=== PATIENT | female | born 1970 | race Caucasian/White ===

== ENCOUNTER → 2016-08-29 | Outpatient (CLI) | payer OTHER ==
--- NOTE | 2016-08-31 08:26 | MM ---
Reason for exam: screening (asymptomatic). Last mammogram was performed 1 year ago. Physical Findings: A clinical breast exam by your physician is recommended on an annual basis and results should be correlated with mammographic findings. MG 3D Screening Mammo W/Cad Bilateral CC and MLO view(s) were taken. Prior study comparison: August 25, 2015, bilateral MG 3d screening mammo w/cad. April 27, 2014, bilateral MG screening mammo w CAD. December 11, 2012, bilateral digital screening mammo w/CAD. The breast tissue is heterogeneously dense. This may lower the sensitivity of mammography. No significant changes when compared with prior studies. ASSESSMENT: Negative, BI-RAD 1 RECOMMENDATION: Routine screening mammogram of both breasts in 1 year.
== END | disposition home or self-care (01) ==
LOC: RADMAMWWP 13:23
PROVIDERS: ATTEND Internal Medicine
DX: Z12.31 Encounter for screening mammogram for malignant neoplasm of breast (principal)
CPT/HCPCS: 77063; G0202

== ENCOUNTER → 2016-10-16 | Outpatient (CLI) | payer OTHER ==
[2016-10-16 11:44] LABS: Cholesterol 144 mg/dL (<200); Creatine Kinase 46 U/L (30-135); HDL Cholesterol 47 mg/dL (40-60); Triglycerides 68 mg/dL (<150)
== END | disposition home or self-care (01) ==
LOC: LABWHC1 10:25
PROVIDERS: ATTEND Internal Medicine
DX: E78.5 Hyperlipidemia, unspecified (principal)
CPT/HCPCS: 36415; 80061; 82550

== ENCOUNTER 2016-12-16 13:30 | Emergency (ER) | payer OTHER ==
[2016-12-16 13:51] VITALS: RESP 18
--- NOTE | 2016-12-16 15:18 | ED ---
General Adult HPI - General Chief complaint: Back Pain/Injury Stated complaint: Flank Pain Time Seen by Provider: 12/16/16 14:27 Source: patient, family, RN notes reviewed Mode of arrival: ambulatory Limitations: no limitations - History of Present Illness Initial comments: Chief complaint and history of present illness a 46-year-old female here with his significant other. The patient reports for the past 2 days to have diffuse discomfort with deep breathing and coughing twisting and turning to both sides of her chest. Goes from her axillary area down the midaxillary line to the top of her pelvis. Pain is increased by twisting turning bending deep breathing coughing and palpation. She has had a past history of costochondritis. Also history of fibromyalgia. She's been doing some heavy lifting lately. Last week she said she had a fever . - Related Data Home Medications Medication Instructions Recorded Confirmed Albuterol Inhaler [Ventolin Hfa 1 - 2 puff INHALATION RT-Q6H PRN 12/16/16 Inhaler] Atorvastatin [Lipitor] 10 mg PO HS 12/16/16 12/16/16 Brexpiprazole [Rexulti] 2 mg PO DAILY 12/16/16 12/16/16 FLUoxetine HCL [PROzac] 40 mg PO BID 12/16/16 12/16/16 Fluticasone Nasal [place] [Flonase 1 spr EA NOSTRIL HS 12/16/16 12/16/16 Nasal [place]] HYDROcodone/APAP 7.5-325MG [[place] 1 tab PO BID PRN 12/16/16 12/16/16 7.5-325] Ibuprofen [Motrin] 800 mg PO Q6H PRN 12/16/16 12/16/16 Loratadine [Claritin] 10 mg PO DAILY 12/16/16 12/16/16 Montelukast [Singulair] 10 mg PO DAILY 12/16/16 12/16/16 Naproxen 500 mg PO Q12HR 12/16/16 12/16/16 Pregabalin [Lyrica] 150 mg PO BID 12/16/16 12/16/16 Topiramate [Topamax] 100 mg PO BID 12/16/16 12/16/16 Previous Rx's Medication Instructions Recorded Ibuprofen [Motrin] 600 mg PO Q6HR PRN #20 tab 12/16/16 predniSONE 10 mg PO DAILY #3 tab 12/16/16 Allergies Allergy/AdvReac Type Severity Reaction Status Date / Time cashew nut Allergy Unknown Verified 12/16/16 14:28 mold Allergy Unknown Verified 12/16/16 13:52 shellfish derived [Shellfish] Allergy Anaphylaxis Verified 12/16/16 13:52 Review of Systems ROS Statement: Those systems with pertinent positive or pertinent negative responses have been documented in the HPI. Review of systems no headache no sore throat she has discomfort to bilateral mid axillary lines from her axilla to her anterior superior iliac spines both hip areas. Pain is easily reproduced by twisting turning deep breathing coughing and palpation. No rashes noted. No direct injury but she does have a history of fibromyalgia she has been doing some heavy lifting and yard work lately. Otherwise no neuro deficits to change in appetite. No nausea no vomiting. All systems are reviewed. Past medical problems COPD and she quit smoking one month ago. History of fibromyalgia for which she takes medications she also has a history of intercostal neuritis costochondritis. Surgeries none. Family history no cancers. Patient has ALLERGIES to mold shellfish. She quit smoking one month ago denies alcohol use. ROS Other: All systems not noted in ROS Statement are negative. Past Medical History Past Medical History: COPD, Fibromyalgia Additional Past Medical History / Comment(s): intercostal neuritis, DDD, carpal tunnel, tennis elbow. History of Any Multi-Drug Resistant Organisms: None Reported Past Surgical History: No Surgical Hx Reported Past Psychological History: No Psychological Hx Reported Smoking Status: Former smoker Past Alcohol Use History: None Reported Past Drug Use History: None Reported General Exam - General Exam Comments Initial Comments: General: The patient is awake and alert, complains reproducible pain across along both midaxillary lines. Left side equal to right side. Made worse by deep breathing coughing twisting turning or palpation. Vital signs shows temperature 98.7 pulse 77 respiratory 18 pulse ox 90% room air blood pressure 136/83 Eye: Pupils are equal, round and reactive to light, extra-ocular movements are intact ; there is normal conjunctiva bilaterally. No signs of icterus. Ears, nose, mouth and throat: There are moist mucous membranes and no oral lesions. Patient has false teeth. Neck: The neck is supple, there is no tenderness mild tenderness left anterior cervical region no palpable lymph nodes. No masses appreciated. Cardiovascular: There is a regular rate and rhythm. No murmur, rub or gallop is appreciated. Respiratory: Lungs are clear to auscultation, respirations are non-labored, breath sounds are equal. No wheezes, stridor, rales, or rhonchi. Reproducible discomfort similar to her chief complaint and palpation of the chest wall laterally. As well as deep breathing and coughing. Gastrointestinal: Soft, non-distended, non-tender abdomen without masses or organomegaly noted. There is no rebound or guarding present. No CVA tenderness. Bowel sounds are unremarkable. Back: There is no tenderness to palpation in the midline. There is no obvious deformity. No rashes noted. Pain is noted above. Musculoskeletal: Normal ROM, no tenderness, There is no pedal edema. There is no calf tenderness or swelling. Sensation intact. Neurological: CN II-XII intact, There are no obvious motor or sensory deficits. Coordination appears grossly intact. Speech is normal. No neuro deficits appreciated. Skin: Skin is warm and dry and no rashes or lesions are noted. Limitations: no limitations Course Vital Signs 12/16/16 13:45 Temperature 98.7 F Pulse Rate 77 Respiratory 18 Rate Blood Pressure 136/83 O2 Sat by Pulse 98 Oximetry Medical Decision Making - Medical Decision Making Medical decision making; patient's white count 6 hemoglobin 13 hematocrit 39 with a potassium 4.0. BUN 6 creatinine 0.5 GFR greater than 60. Glucose 81. Chest x-ray was done and reviewed by radiologist his report and findings are the heart size is normal. The pulmonary vasculature is normal. The lungs are clear. Impression no acute pulmonary process. As read by Dr. Tirado A blood specimen is being sent to [facility] for evaluation of chlamydia PSITACCI, psittacosis apparent fever. At this time the patient's lungs are clear, no fever, no productive cough, no rashes. I discussed with the patient the treatment of tetracycline or doxycycline should this become a positive result from the lab. Inasmuch as the patient does not have any other symptoms other than owning to parents who awakened at this time for the diagnosis to be made by [facility]. Patient advised to talk to her family physician, Dr. Contreras concerning this. The meanwhile the patient be treated for costochondritis with 10 mg of prednisone per day for 4 days and ibuprofen 600 mg 4 times daily for 1 week. - Lab Data Result diagrams: 12/16/16 15:17 12/16/16 15:17 Lab Results 12/16/16 12/16/16 Range/Units 15:17 15:17 WBC 6.2 (3.8-10.6) k/uL RBC 4.29 (3.80-5.40) m/uL Hgb 13.3 (11.4-16.0) gm/dL Hct 39.9 (34.0-46.0) % MCV 92.9 (80.0-100.0) fL MCH 30.9 (25.0-35.0) pg MCHC 33.3 (31.0-37.0) g/dL RDW 13.3 (11.5-15.5) % Plt Count 221 (150-450) k/uL Neutrophils % 56 % Lymphocytes % 35 % Monocytes % 5 % Eosinophils % 1 % Basophils % 0 % Neutrophils # 3.5 (1.3-7.7) k/uL Lymphocytes # 2.1 (1.0-4.8) k/uL Monocytes # 0.3 (0-1.0) k/uL Eosinophils # 0.1 (0-0.7) k/uL Basophils # 0.0 (0-0.2) k/uL Sodium 143 (137-145) mmol/L Potassium 4.0 (3.5-5.1) mmol/L Chloride 109 H (98-107) mmol/L Carbon Dioxide 25 (22-30) mmol/L Anion Gap 9 mmol/L BUN 6 L (7-17) mg/dL Creatinine 0.50 L (0.52-1.04) mg/dL Est GFR (MDRD) Af Amer >60 (>60 ml/min/1.73 sqM) Est GFR (MDRD) Non-Af >60 (>60 ml/min/1.73 sqM) Glucose 81 (74-99) mg/dL Calcium 9.0 (8.4-10.2) mg/dL Total Bilirubin 0.8 (0.2-1.3) mg/dL AST 15 (14-36) U/L ALT 23 (9-52) U/L Alkaline Phosphatase 38 (38-126) U/L C-Reactive Protein <5.0 (<10.0) mg/L Total Protein 6.4 (6.3-8.2) g/dL Albumin 3.8 (3.5-5.0) g/dL Disposition Clinical Impression: Costochondritis, acute Disposition: HOME SELF-CARE Condition: Fair Additional Instructions: Take medications as directed. Follow-up family physician. Call the follow-up nurse emergency room for the results of the ear. Fever test in 5 days. Prescriptions: Ibuprofen [Motrin] 600 mg PO Q6HR PRN #20 tab PRN Reason: Pain predniSONE 10 mg PO DAILY #3 tab Referrals: Grant Contreras MD [Primary Care Provider] - 1-2 days Time of Disposition: 16:17
[2016-12-16 15:26] LABS: Basophils % (A) 0 %; CH 30.6; CHCM 33.1; Eosinophils # (A) 0.1 k/uL (0-0.7); Eosinophils % (A) 1 %; HCT 39.9 % (34.0-46.0); HDW 2.48; HGB 13.3 gm/dL (11.4-16.0); Luc # (Auto) 0.18; Luc % (Auto) 3; Lymphocytes # (A) 2.1 k/uL (1.0-4.8); Lymphocytes % (A) 35 %; MCH 30.9 pg (25.0-35.0); MCHC 33.3 g/dL (31.0-37.0); MCV 92.9 fL (80.0-100.0); Mean Platelet Volume 7.1; Monocytes # (A) 0.3 k/uL (0-1.0); Monocytes % (A) 5 %; Neutrophils # (A) 3.5 k/uL (1.3-7.7); Neutrophils % (A) 56 %; RBC 4.29 m/uL (3.80-5.40); RDW 13.3 % (11.5-15.5); WBC 6.2 k/uL (3.8-10.6); WBC (Perox) 6.07
[2016-12-16 15:37] LABS: ALT 23 U/L (9-52); AST 15 U/L (14-36); Alkaline Phosphatase 38 U/L (38-126); Anion Gap 9 mmol/L; Blood Urea Nitrogen 6 mg/dL (7-17); C Reactive Protein <5.0 mg/L (<10.0); Carbon Dioxide 25 mmol/L (22-30); Chloride 109 mmol/L (98-107); Glucose 81 mg/dL (74-99); Non-African American GFR(MDRD) >60 (>60 ml/min/1.73 sqM); Sodium 143 mmol/L (137-145); Total Bilirubin 0.8 mg/dL (0.2-1.3); Total Protein 6.4 g/dL (6.3-8.2)
--- NOTE | 2016-12-16 16:01 | XR ---
EXAMINATION TYPE: XR chest 2V DATE OF EXAM: 12/16/2016 3:24 PM COMPARISON: NONE INDICATION: Pain with deep breathing TECHNIQUE: Single frontal view of the chest is obtained. FINDINGS: The heart size is normal. The pulmonary vasculature is normal. The lungs are clear. IMPRESSION: 1. No acute pulmonary process.
[2016-12-16] MEDS ORDERED: IBUPROFEN 600 MG STARTER PACK 4 TAB BTL PO STA (16:12)
[2016-12-16] MEDS ORDERED: predniSONE 20 MG TAB PO STA (16:12)
[2016-12-16 16:30] VITALS: BP 138/64; PULSE 55; TEMP 97.6
[2016-12-20 07:54] LABS: Mis test requested (Blood) Chlamydia Serology
== END 2016-12-16 16:29 | disposition home or self-care (01) ==
LOC: EC 13:30
DX: M94.0 Chondrocostal junction syndrome [Tietze] (principal); R10.9 Unspecified abdominal pain; R50.9 Fever, unspecified; Z79.51 Long term (current) use of inhaled steroids; J44.9 Chronic obstructive pulmonary disease, unspecified; Z87.891 Personal history of nicotine dependence; Z79.1 Long term (current) use of non-steroidal anti-inflammatories (NSAID); Z79.899 Other long term (current) drug therapy; Z91.013 Allergy to seafood; Z91.018 Allergy to other foods; Z91.048 Other nonmedicinal substance allergy status
CPT/HCPCS: 36415; 80053; 85025; 86140; 71020; 99284; J7512; 86631; 86632

== ENCOUNTER 2016-12-19 16:26 | Emergency (ER) | payer OTHER ==
[2016-12-19] MEDS ORDERED: MORPHINE SULFATE 2 MG/ML SYRINGE IVP STA (17:38)
[2016-12-19] MEDS ORDERED: SODIUM CHLORIDE 0.9% 1,000 ML IV STA (17:38)
[2016-12-19] MEDS ORDERED: ORPHENADRINE 30 MG/ML 2 ML VIAL IVP STA (17:39)
--- NOTE | 2016-12-19 17:52 | ED ---
General Adult HPI - General Chief complaint: Recheck/Abnormal Lab/Rx Stated complaint: Side Pain Time Seen by Provider: 12/19/16 17:28 Source: patient, RN notes reviewed, old records reviewed Mode of arrival: ambulatory Limitations: no limitations - History of Present Illness Initial comments: This is a 46-year-old female with chief complaint of recurrent bilateral side pain. Patient reports that the pain is worse with movement. She reports that she was diagnosed with costochondritis and placed on steroids and anti- inflammatory medication. Patient reports that she went to her neurologist today and she has a history of fibromyalgia. Patient reports that she received a Toradol shot felt somewhat better over her pain is now return. Patient states that she does have an appointment tomorrow with her primary care doctor. Patient states that she just was not able to get comfortable and to sleep well. Patient states that she takes [place] at home. She reports that Helping her pain. She states the pain is worse with any kind of movement over her torso. She reports that radiates from bilateral axilla down to her pelvis region. Patient denies any difficulty urinating or bowel movements. Denies any nausea vomiting or specific abdominal pain. Patient states that she has no deep chest pain. Everything seems to be superficial. - Related Data Home Medications Medication Instructions Recorded Confirmed Albuterol Inhaler [Ventolin Hfa 1 - 2 puff INHALATION RT-Q6H PRN 12/16/16 Inhaler] Atorvastatin [Lipitor] 10 mg PO HS 12/16/16 12/19/16 FLUoxetine HCL [PROzac] 40 mg PO BID 12/16/16 12/19/16 Fluticasone Nasal [place] [Flonase 1 spr EA NOSTRIL BID 12/16/16 12/19/16 Nasal [place]] HYDROcodone/APAP 7.5-325MG [[place] 1 tab PO TID PRN 12/16/16 12/19/16 7.5-325] Loratadine [Claritin] 10 mg PO DAILY 12/16/16 12/19/16 Montelukast [Singulair] 10 mg PO DAILY 12/16/16 12/19/16 Pregabalin [Lyrica] 150 mg PO BID 12/16/16 12/19/16 Topiramate [Topamax] 100 mg PO BID 12/16/16 12/19/16 Multivitamins, Thera [Multivitamin 1 tab PO DAILY 12/19/16 12/19/16 (formulary)] Oil Of Oregano 1 dose PO DAILY 12/19/16 12/19/16 predniSONE 20 mg PO DAILY 12/19/16 12/19/16 Previous Rx's Medication Instructions Recorded Ibuprofen [Motrin] 600 mg PO Q6HR PRN #20 tab 12/16/16 Cyclobenzaprine [Flexeril] 10 mg PO TID #12 tab 12/19/16 Allergies Allergy/AdvReac Type Severity Reaction Status Date / Time cashew nut Allergy Unknown Verified 12/19/16 18:36 cat dander Allergy Unknown Verified 12/19/16 18:36 dog dander Allergy Unknown Verified 12/19/16 18:36 mold Allergy Unknown Verified 12/19/16 18:36 shellfish derived [Shellfish] Allergy Anaphylaxis Verified 12/19/16 18:36 Review of Systems ROS Statement: Those systems with pertinent positive or pertinent negative responses have been documented in the HPI. ROS Other: All systems not noted in ROS Statement are negative. Past Medical History Past Medical History: COPD, Fibromyalgia Additional Past Medical History / Comment(s): intercostal neuritis, DDD, carpal tunnel, tennis elbow. History of Any Multi-Drug Resistant Organisms: None Reported Past Surgical History: No Surgical Hx Reported Past Psychological History: No Psychological Hx Reported Smoking Status: Former smoker Past Alcohol Use History: None Reported Past Drug Use History: None Reported General Exam - General Exam Comments Initial Comments: Patient is a 46-year-old female. She does not appear to be in any acute distress. Limitations: no limitations General appearance: alert, in no apparent distress Head exam: Present: atraumatic, normocephalic, normal inspection Eye exam: Present: normal appearance, PERRL, EOMI. Absent: scleral icterus, conjunctival injection, periorbital swelling ENT exam: Present: normal exam, mucous membranes moist Neck exam: Present: normal inspection. Absent: tenderness, meningismus, lymphadenopathy Respiratory exam: Present: normal lung sounds bilaterally, chest wall tenderness (Patient has significant bilateral chest wall tenderness. ). Absent : respiratory distress, wheezes, rales, rhonchi, stridor Cardiovascular Exam: Present: regular rate, normal rhythm, normal heart sounds. Absent: systolic murmur, diastolic murmur, rubs, gallop, clicks GI/Abdominal exam: Present: soft, normal bowel sounds. Absent: distended, tenderness, guarding, rebound, rigid Extremities exam: Present: normal inspection, full ROM, normal capillary refill. Absent: tenderness, pedal edema, joint swelling, calf tenderness Back exam: Present: normal inspection Neurological exam: Present: alert, oriented X3, CN II-XII intact Psychiatric exam: Present: normal affect, normal mood Skin exam: Present: warm, dry, intact, normal color. Absent: rash Course Vital Signs 12/19/16 12/19/16 16:58 17:35 Temperature 98.6 F Pulse Rate 81 Respiratory 20 16 Rate Blood Pressure 120/57 O2 Sat by Pulse 96 Oximetry Medical Decision Making - Medical Decision Making This is a 46-year-old female with chief complaint of diffuse muscle aches and body pain. Patient was treated for costochondritis and was given steroids and anti-inflammatories. Patient reports that she saw her neurologist today and received a shot of Toradol was feeling somewhat better after that. She reports the pain returned and then decided come to the emergency room. She does have an appointment tomorrow with her primary care provider. She does have a history of viral myalgias concerned this is a fibronodular laceration. Patient lab work and x-rays were negative for any acute process. She does have a lot of blood in her urine but she is currently on her menstrual cycle. Patient will be discharged with muscle relaxers and advised to take her at home pain medication and follow-up tomorrow with her regular care provider. Patient agrees treatment plan will comply. Return parameters were discussed. - Lab Data Result diagrams: 12/19/16 18:00 12/19/16 18:00 Lab Results 12/19/16 12/19/16 12/19/16 Range/Units 17:40 17:40 18:00 WBC (3.8-10.6) k/uL RBC (3.80-5.40) m/uL Hgb (11.4-16.0) gm/dL Hct (34.0-46.0) % MCV (80.0-100.0) fL MCH (25.0-35.0) pg MCHC (31.0-37.0) g/dL RDW (11.5-15.5) % Plt Count (150-450) k/uL Neutrophils % % Lymphocytes % % Monocytes % % Eosinophils % % Basophils % % Neutrophils # (1.3-7.7) k/uL Lymphocytes # (1.0-4.8) k/uL Monocytes # (0-1.0) k/uL Eosinophils # (0-0.7) k/uL Basophils # (0-0.2) k/uL Sodium 138 (137-145) mmol/L Potassium 5.0 (3.5-5.1) mmol/L Chloride 107 (98-107) mmol/L Carbon Dioxide 24 (22-30) mmol/L Anion Gap 7 mmol/L BUN 12 (7-17) mg/dL Creatinine 0.48 L (0.52-1.04) mg/dL Est GFR (MDRD) Af Amer >60 (>60 ml/min/1.73 sqM) Est GFR (MDRD) Non-Af >60 (>60 ml/min/1.73 sqM) Glucose 96 (74-99) mg/dL Calcium 9.2 (8.4-10.2) mg/dL Total Bilirubin 0.5 (0.2-1.3) mg/dL AST 14 (14-36) U/L ALT 16 (9-52) U/L Alkaline Phosphatase 38 (38-126) U/L Troponin I (0.000-0.034) ng/mL Total Protein 6.6 (6.3-8.2) g/dL Albumin 3.8 (3.5-5.0) g/dL Amylase 46 (30-110) U/L Lipase 60 (23-300) U/L Urine Color Yellow Urine Appearance Clear (Clear) Urine pH 7.5 (5.0-8.0) Ur Specific [place] 1.015 (1.001-1.035) Urine Protein Negative (Negative) Urine Glucose (UA) Negative (Negative) Urine Ketones Negative (Negative) Urine Blood Moderate H (Negative) Urine Nitrite Negative (Negative) Urine Bilirubin Negative (Negative) Urine Urobilinogen 2.0 (<2.0) mg/dL Ur Leukocyte Esterase Negative (Negative) Urine RBC 47 H (0-5) /hpf Urine WBC 6 H (0-5) /hpf Ur Squamous Epith Cells 1 (0-4) /hpf Amorphous Sediment Rare H (None) /hpf Urine Mucus Rare H (None) /hpf Urine HCG, Qual Not Detected (Not Detectd) 12/19/16 12/19/16 Range/Units 18:00 18:00 WBC 9.3 (3.8-10.6) k/uL RBC 4.37 (3.80-5.40) m/uL Hgb 13.9 (11.4-16.0) gm/dL Hct 40.9 (34.0-46.0) % MCV 93.7 (80.0-100.0) fL MCH 31.9 (25.0-35.0) pg MCHC 34.1 (31.0-37.0) g/dL RDW 13.2 (11.5-15.5) % Plt Count 294 (150-450) k/uL Neutrophils % 80 % Lymphocytes % 13 % Monocytes % 5 % Eosinophils % 0 % Basophils % 0 % Neutrophils # 7.4 (1.3-7.7) k/uL Lymphocytes # 1.2 (1.0-4.8) k/uL Monocytes # 0.5 (0-1.0) k/uL Eosinophils # 0.0 (0-0.7) k/uL Basophils # 0.0 (0-0.2) k/uL Sodium (137-145) mmol/L Potassium (3.5-5.1) mmol/L Chloride (98-107) mmol/L Carbon Dioxide (22-30) mmol/L Anion Gap mmol/L BUN (7-17) mg/dL Creatinine (0.52-1.04) mg/dL Est GFR (MDRD) Af Amer (>60 ml/min/1.73 sqM) Est GFR (MDRD) Non-Af (>60 ml/min/1.73 sqM) Glucose (74-99) mg/dL Calcium (8.4-10.2) mg/dL Total Bilirubin (0.2-1.3) mg/dL AST (14-36) U/L ALT (9-52) U/L Alkaline Phosphatase (38-126) U/L Troponin I <0.012 (0.000-0.034) ng/mL Total Protein (6.3-8.2) g/dL Albumin (3.5-5.0) g/dL Amylase (30-110) U/L Lipase (23-300) U/L Urine Color Urine Appearance (Clear) Urine pH (5.0-8.0) Ur Specific [place] (1.001-1.035) Urine Protein (Negative) Urine Glucose (UA) (Negative) Urine Ketones (Negative) Urine Blood (Negative) Urine Nitrite (Negative) Urine Bilirubin (Negative) Urine Urobilinogen (<2.0) mg/dL Ur Leukocyte Esterase (Negative) Urine RBC (0-5) /hpf Urine WBC (0-5) /hpf Ur Squamous Epith Cells (0-4) /hpf Amorphous Sediment (None) /hpf Urine Mucus (None) /hpf Urine HCG, Qual (Not Detectd) - Radiology Data Radiology results: report reviewed Chest x-ray is normal. No change. Abdominal x-rays also notable. No acute change. Disposition Clinical Impression: Generalized muscle ache Disposition: HOME SELF-CARE Condition: Good Instructions: Fibromyalgia (ED) Additional Instructions: Patient advised to follow-up tomorrow here primary care provider. Take muscle relaxers and temperatures as prescribed. Return to emergency department if any alarming signs or symptoms occur. Prescriptions: Cyclobenzaprine [Flexeril] 10 mg PO TID #12 tab Referrals: Grant Contreras MD [Primary Care Provider] - 1-2 days Time of Disposition: 19:23
[2016-12-19 17:59] LABS: Amorphous Sediment,Urine Rare /hpf; Appearance,Urine Clear (Clear); Bilirubin,Urine Negative (Negative); Glucose,Urine (UA) Negative (Negative); Ketones,Urine Negative (Negative); Leukocyte Esterase,Urine Negative (Negative); Mucus,Urine Rare /hpf; Nitrite,Urine Negative (Negative); PH, Urine 7.5 (5.0-8.0); Particle Count 2123; Protein,Urine Negative (Negative); RBC,Urine 47 /hpf (0-5); Specific Gravity,Urine 1.015 (1.001-1.035); Squamous Epithelial Cell,Urine 1 /hpf (0-4); UA Billing (MACRO vs. MICRO) MICRO; WBC,Urine 6 /hpf (0-5)
[2016-12-19 18:23] LABS: Basophils % (A) 0 %; CH 30.8; Eosinophils % (A) 0 %; HCT 40.9 % (34.0-46.0); HGB 13.9 gm/dL (11.4-16.0); Luc # (Auto) 0.18; Luc % (Auto) 2; Lymphocytes # (A) 1.2 k/uL (1.0-4.8); Lymphocytes % (A) 13 %; MCH 31.9 pg (25.0-35.0); MCHC 34.1 g/dL (31.0-37.0); MCV 93.7 fL (80.0-100.0); Monocytes # (A) 0.5 k/uL (0-1.0); Monocytes % (A) 5 %; Neutrophils # (A) 7.4 k/uL (1.3-7.7); Neutrophils % (A) 80 %; RBC 4.37 m/uL (3.80-5.40); RDW 13.2 % (11.5-15.5); WBC 9.3 k/uL (3.8-10.6); WBC (Perox) 9.24
[2016-12-19 18:26] LABS: ALT 16 U/L (9-52); AST 14 U/L (14-36); Alkaline Phosphatase 38 U/L (38-126); Amylase 46 U/L (30-110); Anion Gap 7 mmol/L; Blood Urea Nitrogen 12 mg/dL (7-17); Calcium 9.2 mg/dL (8.4-10.2); Carbon Dioxide 24 mmol/L (22-30); Chloride 107 mmol/L (98-107); Glucose 96 mg/dL (74-99); Non-African American GFR(MDRD) >60 (>60 ml/min/1.73 sqM); Sodium 138 mmol/L (137-145); Total Bilirubin 0.5 mg/dL (0.2-1.3); Total Protein 6.6 g/dL (6.3-8.2)
--- NOTE | 2016-12-19 18:39 | XR ---
EXAMINATION TYPE: XR KUB DATE OF EXAM: 12/19/2016 6:27 PM COMPARISON: NONE HISTORY: Abdominal pain TECHNIQUE: 2 views FINDINGS: Bowel gas pattern is normal. There is no sign of intestinal obstruction or pneumoperitoneum . Fecal pattern is normal. There are no pathologic calcifications over the kidneys. Lung bases are cl ear. IMPRESSION: Nonacute abdomen.
--- NOTE | 2016-12-19 18:40 | XR ---
EXAMINATION TYPE: XR chest 2V DATE OF EXAM: 12/19/2016 6:27 PM COMPARISON: 12/16/2016 HISTORY: Chest pain TECHNIQUE: Frontal and lateral views of the chest are obtained. FINDINGS: Heart and mediastinum are normal. Lungs are clear. Diaphragm is normal. Bony thorax appear s normal. IMPRESSION: Normal chest. No change.
[2016-12-19] MEDS ORDERED: CYCLOBENZAPRINE 10MG STARTER 3 TAB BTL PO STA (19:28)
[2016-12-19 19:55] VITALS: BP 128/60; PULSE 60; RESP 18; TEMP 98
== END 2016-12-19 20:02 | disposition home or self-care (01) ==
LOC: EC 16:26
DX: M79.1 Myalgia (principal); J44.9 Chronic obstructive pulmonary disease, unspecified; Z87.891 Personal history of nicotine dependence; Z79.51 Long term (current) use of inhaled steroids; Z79.52 Long term (current) use of systemic steroids; Z79.899 Other long term (current) drug therapy; Z91.013 Allergy to seafood; Z91.018 Allergy to other foods; Z91.09 Other allergy status, other than to drugs and biological substances; Z91.048 Other nonmedicinal substance allergy status
CPT/HCPCS: 36415; 80053; 82150; 83690; 84484; 85025; 81001; 81025; 71020; 74000; 99284; 96374; 96375; 96361; J2360; J2270

== ENCOUNTER → 2017-02-06 | Outpatient (CLI) | payer OTHER ==
[2017-02-06 13:34] LABS: Follicle Stimulating Hormone 10.6 mIU/mL
[2017-02-06 13:36] LABS: Basophils % (A) 0 %; CHCM 34.5; Eosinophils # (A) 0.1 k/uL (0-0.7); Eosinophils % (A) 1 %; HCT 39.9 % (34.0-46.0); HGB 13.7 gm/dL (11.4-16.0); Luc # (Auto) 0.19; Luc % (Auto) 3; Lymphocytes # (A) 1.8 k/uL (1.0-4.8); Lymphocytes % (A) 27 %; MCH 30.9 pg (25.0-35.0); MCHC 34.2 g/dL (31.0-37.0); MCV 90.4 fL (80.0-100.0); Mean Platelet Volume 7.1; Monocytes # (A) 0.4 k/uL (0-1.0); Monocytes % (A) 6 %; Neutrophils # (A) 4.2 k/uL (1.3-7.7); Neutrophils % (A) 63 %; RBC 4.42 m/uL (3.80-5.40); RDW 12.8 % (11.5-15.5); WBC 6.6 k/uL (3.8-10.6); WBC (Perox) 6.45
--- NOTE | 2017-02-07 08:32 | WWHP ---
CHIEF COMPLAINT: The patient is here for her routine gynecologic exam. HPI: This is a 46-year-old G4, P2-0-2-2 with an LMP of 01/26/17. The patient's is status post vasectomy. She states her periods have become more frequent and are typically about 2 weeks between periods. She states this has been going on for about one year. They are typically lasting 5 to 7 days with variable flow. She has been having hot flashes, night sweats and mood swings. She also hash been very fatigued. She has been experiencing pain on both sides of her body and she believes this may be related to her fibromyalgia. She states she was in the emergency room 12/16/16 and chlamydia serology testing was done. The titer was positive for C. pneumoniae IgG antibodies. Serology was negative for C. trachomatis titers. PAST MEDICAL HISTORY: Major depression, COPD, fibromyalgia, migraine headaches, chronic hypertension, IBS, and degenerative disc disease. MEDICATIONS: 1. Fluoxetine 40 mg b.i.d. 2. Lyrica 150 mg b.i.d. 3. Topiramate 100 mg b.i.d. 4. Rexulti 2 mg daily. 5. Hydrocodone 7.5/325 b.i.d. 6. Ibuprofen 800 mg p.r.n. 7. Naproxen 500 mg b.i.d. 8. Atorvastatin 10 mg daily. 9. Loratadine 10 mg daily. 10. Montelukast 10 mg daily. 11. Fluticasone 50 mcg b.i.d. 12. Ventolin HFA inhaler q.4 to 6 hours. 13. Lisinopril 5 mg daily. ALLERGIES: No known drug allergies. PAST SURGICAL HISTORY: VTP in the past, cryotherapy of the cervix in 2000. PAST OB HISTORY: Two vaginal deliveries, one voluntary termination of and one spontaneous . PAST SEMICONDUCTOR BONDER HISTORY: She had cryotherapy in 2000 for cervical dysplasia and has no other history of STD. SOCIAL HISTORY: She previous smoked but quit in 09/14. She denies alcohol and drug use. She has been since 2014 and is currently unemployed. FAMILY HISTORY: Mother has diabetes. REVIEW OF SYSTEMS: She has lost about 6 pounds over the last 2 to 3 years. RESPIRATORY: Occasional shortness of breath related to her COPD. She denies cardiac problems. GI: She does have occasional constipation and IBS symptoms. PHYSICAL EXAM: Blood pressure 102/70, height 5 feet 4 inches, weight 178 pounds. Temperature 98.0, pulse 75. This is a well developed, well nourished white female who is alert and oriented x3 in no acute distress. HEENT is within normal limits. Neck supple without mass or thyromegaly. Chest and lungs clear to auscultation. Heart: Regular rate and rhythm. Breasts are without mass or discharge. Axillary exam is negative for adenopathy. Back is negative for cva tenderness. Abdomen is soft and there is mild generalized tenderness throughout the abdomen without rebound tenderness. There are no palpable abdominal masses. The abdomen is nondistended. Pelvic exam is normal external genitalia. Cervix and vagina reveal a scant amount of menstrual type blood at the cervix. The cervix is appears otherwise unremarkable and there are no lesions. There is no cervical motion tenderness. The uterus is midposition, nongravid size. There is generalized pelvis tenderness similar to the generalized abdominal tenderness. This is mild. There are no palpable adnexal masses. Rectovaginal exam is negative for mass or tenderness and is negative for occult blood. Extremities nontender. IMPRESSION: 1. A 46-year-old female with increased menstrual frequency and vasomotor symptoms, possible perimenopause. 2. Chronic pain problems and multiple medical problems. 3. Generalized mild pelvic tenderness without palpable masses. PLAN: 1. PAP smear was performed. 2. Self breast examination was discussed. 3. Mammogram was done on 08/29/16 and was negative. This will be repeated in one year. 4. Blood testing will be done including CBC, TSH and Estradiol and FSH. 5. GC and chlamydia screening from the cervix have been obtained. 6. Pelvic ultrasound will be ordered. 7. The patient will keep a menstrual calender. We will use this to further document the frequency of her periods. We will consider endometrial biopsy and consider treatment options if her menses are greater than every three weeks. 8. She will return in approximately 3 months for re-evaluation as well as one year and p.r.n. MTDD
== END ==
LOC: WWCWWP 10:26
PROVIDERS: ATTEND Obstetrics & Gynecology
DX: N92.0 Excessive and frequent menstruation with regular cycle (principal); R53.83 Other fatigue
CPT/HCPCS: 36415; 82670; 83001; 84443; 85025; 87491; 87591

== ENCOUNTER → 2017-02-07 | Outpatient (CLI) | payer OTHER ==
--- NOTE | 2017-02-07 15:45 | US ---
EXAMINATION TYPE: US pelvic complete DATE OF EXAM: 02/07/2017 COMPARISON: NONE CLINICAL HISTORY: R68.89 GENERATED PELVIC TENDERNESS. Intermittent pelvic pain x 2 months, irregular cycles, 4, para 2, miscarriage 1, 1 TECHNIQUE: Transvaginal (TV) and Transabdominal (TA) Date of LMP: 02/05/17 EXAM MEASUREMENTS: Uterus: 8.1 x 4.4 x 5.8 cm Endometrial Stripe: 0.6 cm Right Ovary: 2.7 x 1.7 x 1.4 cm Left Ovary: 2.0 x 1.0 x 1.7 cm 1. Uterus: anteverted, heterogeneous without any definite lesion seen at this time 2. Endometrium: wnl 3. Right Ovary: 1.2cm cystic area 4. Left Ovary: 0.9cm cystic area 5. Bilateral Adnexa: wnl 6. Posterior cul-de-sac: wnl Endometrial stripe is poorly visualized on transabdominal and transvaginal investigation. Peripheral anechoic lesions under 1.5 cm in both ovaries favor prominent follicles. IMPRESSION: No significant finding is seen to account for patient's symptoms.
== END | disposition home or self-care (01) ==
LOC: RADUSWWP 15:07
PROVIDERS: ATTEND Obstetrics & Gynecology
DX: R68.89 Other general symptoms and signs (principal)
CPT/HCPCS: 76830; 76856

== ENCOUNTER → 2017-03-06 | Outpatient (CLI) | payer OTHER ==
--- NOTE | 2017-03-06 22:27 | MR ---
EXAMINATION TYPE: MR brain wo con DATE OF EXAM: 03/06/2017 COMPARISON: NONE HISTORY: Headaches per order. Dizziness with head injury after fall per patient. TECHNIQUE: Multiplanar, multisequence imaging of the brain and brainstem is performed without IV cont rast. FINDINGS: Diffusion weighted images demonstrate no evidence of a recent infarct or other diffusion abnormality. There is no worrisome extra-axial fluid collection. The ventricular system and cisternal spaces are normal in size and appearance. The brain volume is age appropriate. T2 Star weighted images show no suspicious intraparenchymal blood product. There are few scattered foci of T2 hyperintensity seen thr oughout the white matter bilaterally. I estimate 5-8 scattered lesions all measuring 5 mm or smaller in size. Midline structures demonstrate normal morphology. The craniocervical junction appears within normal limits. Normal vascular flow voids are present. The visualized sinuses are clear and the globes are i ntact. No suspicious fluid signal mastoid air cells is present bilaterally. IMPRESSION: Mild nonspecific white matter changes as detailed above otherwise unremarkable study.
== END | disposition home or self-care (01) ==
LOC: RADMRIMAIN 11:31
PROVIDERS: ATTEND Physician Assistant
DX: R90.82 White matter disease, unspecified (principal); R51 Headache
CPT/HCPCS: 70551

== ENCOUNTER → 2017-03-20 | Day surgery (SDC) | payer OTHER ==
--- NOTE | 2017-03-20 13:45 | P.PCN ---
Date of Procedure: 03/20/17 Preoperative Diagnosis: Menometrorrhagia Postoperative Diagnosis: Same Procedure(s) Performed: Endometrial Biopsy Implants: Anesthesia: none Surgeon: Merrill Doll Estimated Blood Loss (ml): 0 IV fluids (ml): 0 Pathology: other (Endometrial tissue) Condition: stable Disposition: same day Indications for Procedure: This is a 46-year-old , 0, 2, 2 with an LMP of 03/01/2017. The patient had been having frequent menstrual periods about every 2 1/2 to 3 weeks over the past year. Because of the frequent menstrual periods she was scheduled for an endometrial biopsy. Possible risks and complications were reviewed with the patient and her all questions were answered. Operative Findings: The uterus sounded to 8 cm. A moderate amount of tissue was obtained. Description of Procedure: The endometrial biopsy procedure was described to the patient. All of her questions were answered. The patient was placed in the lithotomy position. Bimanual examination was performed. The uterus is mid- positioned and is non- gravid size. The speculum was inserted and the cervix and vagina were prepped with betadine solution. The 3mm endometrial biopsy curette was placed to the fundus without difficulty. The uterus sounded to 8 cm. A [id number] rotating motion was used and a small to moderate amount of tissue was obtained and sent for pathological examination. The patient tolerated the procedure well. There were no complications. The post procedure vitals are as follows: blood pressure 112/56. pulse 77, temperature 96.1. Post procedure instructions were given to the patient. A prescription was given to the patient for Provera 10 mg. She will take one PO Q day on days 1 to 12 of the month.
== END ==
LOC: WWCWWP 11:45
PROVIDERS: ATTEND Obstetrics & Gynecology
DX: N92.1 Excessive and frequent menstruation with irregular cycle (principal)
CPT/HCPCS: 88305

== ENCOUNTER → 2017-05-07 | Outpatient (CLI) | payer OTHER ==
--- NOTE | 2017-05-07 12:42 | MR ---
MR thoracic spine HISTORY: Pain Multiplanar multisequence imaging through the thoracic spine No comparisons Thoracic vertebral bodies show preserved height and alignment. There is a mild spinal curvature prese nt. Multilevel spondylosis is present with endplate discogenic marrow signal change especially at T5- 6, T6-7, T7-8 and T8-9. Some associated loss of disc height and signal greatest at T5-6, T6-7 and T7- 8. At T7-8 there is a posterior central disc herniation contacting the anterior thoracic cord, some loca l mass effect is suspected. T5-6 shows a small central posterior disc herniation possibly contacting the anterior thoracic cord, some local mass effect is suspected. T6-7 shows a small posterior disc bulge causes only slight anterior mass effect on the thecal sac. No significant foraminal encroachment or central canal stenosis. Thoracic cord signal is maintained. T9 vertebral body shows some lower signal on T1 and T2-weighted sequences within the vertebral body. Question field of view inhomogeneity. IMPRESSION: Degenerative disc disease. Disc herniation greatest at T7-8 as described.
== END ==
LOC: RADMRIMAIN 10:08
PROVIDERS: ATTEND Physician Assistant
DX: M51.24 Other intervertebral disc displacement, thoracic region (principal); M51.34 Other intervertebral disc degeneration, thoracic region
CPT/HCPCS: 72146

== ENCOUNTER 2017-09-09 16:20 | Emergency (ER) | payer OTHER ==
[2017-09-09 16:57] VITALS: RESP 18; TEMP 98.3
[2017-09-09] MEDS ORDERED: MAG HYDROX/AL HYDROX/SIMETH 30 ML, HYOSCYAMINE ELIXIR 10 ML, CIMETIDINE HCL 300 MG, LID... PO STA ×4 (18:03)
[2017-09-09] MEDS ORDERED: SODIUM CHLORIDE 0.9% 1,000 ML IV STA (18:03)
[2017-09-09] MEDS ORDERED: ONDANSETRON 4 MG/2 ML VIAL IVP STA (18:03)
[2017-09-09] MEDS ORDERED: FAMOTIDINE 20 MG/2 ML VIAL IV STA (18:03)
--- NOTE | 2017-09-09 18:16 | ED ---
General Adult HPI - General Chief complaint: Recheck/Abnormal Lab/Rx Stated complaint: Pain in sides, weakness Time Seen by Provider: 09/09/17 17:52 Source: patient Mode of arrival: ambulatory Limitations: no limitations - History of Present Illness Initial comments: Pt presents for a "flare" of fibromyalgia. Pt states she has such flares every few days for past 1 year. Pt states she experiences aching pain in bilateral flanks. Pt states she is also experiencing "GERD", dry mouth, burning in throat. State she has EGD with dilation in past, has not seen GI doctor in [place]. Patient denies headache, fevers, chills, vomiting, abdominal pain, changes in bowel movements, urinary symptoms, shortness breath, cough, chest pain, nasal congestion, rhinorrhea, numbness, weakness. Patient does state she has mild fatigue. Decreased appetite from the "GERD acting up". Patient states she takes Motrin 800 mg and Surrency 7.5 at home for her pain, which do improve the pain but do not relieve it. MD Complaint: fatigue, GERD - Related Data Home Medications Medication Instructions Recorded Confirmed Albuterol Inhaler [Ventolin Hfa 2 puff INHALATION RT-Q4H PRN 12/16/16 09/09/17 Inhaler] Fluticasone Nasal [place] [Flonase 2 spr EA NOSTRIL DAILY 12/16/16 09/09/17 Nasal [place]] HYDROcodone/APAP 7.5-325MG [Surrency 1 tab PO TID PRN 12/16/16 09/09/17 7.5-325] Loratadine [Claritin] 10 mg PO DAILY 12/16/16 09/09/17 Montelukast [Singulair] 10 mg PO DAILY 12/16/16 09/09/17 Pregabalin [Lyrica] 150 mg PO BID 12/16/16 09/09/17 Topiramate [Topamax] 100 mg PO BID 12/16/16 09/09/17 Oil Of Oregano 3 - 4 drops PO BID 12/19/16 09/09/17 Ascorbic Acid/Multivit-Min 1,000 mg PO DAILY 09/09/17 09/09/17 [Emergen-C 1,000 mg Packet] Brexpiprazole [Rexulti] 2 mg PO DAILY 09/09/17 09/09/17 Cholecalciferol [Vitamin D3] 1,000 unit PO BID 09/09/17 09/09/17 Co Q-10 50mg 50 mg PO DAILY 09/09/17 09/09/17 Collagen+C(2500mg) 1 tab PO TID 09/09/17 09/09/17 Echinacea + Zinc Lozenge 1 lozenge PO BID 09/09/17 09/09/17 Fish Oil/Dha/Epa [Fish Oil 1,200 1 cap PO DAILY 09/09/17 09/09/17 mg Fish Oil] Shruthi Slices 1 dose PO DAILY 09/09/17 09/09/17 Ibuprofen [Motrin] 600 mg PO Q8H PRN 09/09/17 09/09/17 Lysine [l-Lysine] 500 mg PO TID 09/09/17 09/09/17 Naproxen 500 mg PO BID 09/09/17 09/09/17 Oxybutynin Chloride 5 mg PO BID 09/09/17 09/09/17 Papaya [Papaya Enzyme] 4 tab PO TID 09/09/17 09/09/17 Spirulina (500mg) 500 mg PO Q4H 09/09/17 09/09/17 Turmeric Root Extract [Turmeric] 500 mg PO DAILY 09/09/17 09/09/17 Vitamin B Complex 1 cap PO DAILY 09/09/17 09/09/17 Vitamin E (Dl,Tocopheryl Acet) 400 unit PO BID 09/09/17 09/09/17 [Vitamin E] Zinc 50 mg PO DAILY 09/09/17 09/09/17 hydrOXYzine PAMOATE 25 mg PO QAM 09/09/17 09/09/17 hydrOXYzine PAMOATE 50 mg PO HS 09/09/17 09/09/17 medroxyPROGESTERone [Provera] 10 mg PO DAILY 09/09/17 09/09/17 Previous Rx's Medication Instructions Recorded Cyclobenzaprine [Flexeril] 10 mg PO TID #12 tab 12/19/16 Famotidine [Pepcid] 20 mg PO BID #20 tablet 09/09/17 Allergies Allergy/AdvReac Type Severity Reaction Status Date / Time cashew nut Allergy Unknown Verified 09/09/17 16:57 cat dander Allergy Unknown Verified 09/09/17 16:57 dog dander Allergy Unknown Verified 09/09/17 16:57 gabapentin Allergy Unknown Verified 09/09/17 16:57 mold Allergy Unknown Verified 09/09/17 16:57 shellfish derived [Shellfish] Allergy Anaphylaxis Verified 09/09/17 16:57 Review of Systems ROS Statement: Those systems with pertinent positive or pertinent negative responses have been documented in the HPI. ROS Other: All systems not noted in ROS Statement are negative. Constitutional: Denies: fever, chills, weakness Eyes: Denies: vision change ENT: Reports: throat pain. Denies: ear pain, congestion Respiratory: Denies: cough, dyspnea, wheezes Cardiovascular: Denies: chest pain, palpitations, syncope Endocrine: Reports: fatigue Gastrointestinal: Reports: nausea. Denies: abdominal pain, vomiting, diarrhea, constipation, hematemesis Genitourinary: Reports: other (bilat flank pain). Denies: urgency, dysuria, frequency, hematuria, discharge, abnormal menses Musculoskeletal: Denies: back pain, joint swelling, arthralgia, myalgia Skin: Denies: rash, change in color Neurological: Denies: headache, weakness, numbness, paresthesias, confusion Past Medical History Past Medical History: COPD, Fibromyalgia Additional Past Medical History / Comment(s): intercostal neuritis, DDD, carpal tunnel, tennis elbow. History of Any Multi-Drug Resistant Organisms: None Reported Past Surgical History: No Surgical Hx Reported Past Psychological History: Anxiety, Depression Smoking Status: Former smoker Past Alcohol Use History: None Reported Past Drug Use History: None Reported General Exam - General Exam Comments Initial Comments: Sitting up in bed smiling. No acute distress. Resting comfortably in bed. Does not appear in pain. Calm, pleasant. Well-appearing. Limitations: no limitations General appearance: alert, in no apparent distress Head exam: Present: atraumatic, normocephalic Eye exam: Present: normal appearance, PERRL, EOMI ENT exam: Present: normal exam, normal oropharynx, other (Oropharynx clear, no erythema or exudates appreciated.) Neck exam: Present: normal inspection, full ROM. Absent: tenderness, meningismus Respiratory exam: Present: normal lung sounds bilaterally. Absent: respiratory distress, wheezes, rales Cardiovascular Exam: Present: regular rate, normal rhythm GI/Abdominal exam: Present: soft, other (No CVA tenderness appreciated). Absent : distended, tenderness, guarding, rebound Extremities exam: Present: normal inspection Back exam: Present: normal inspection Neurological exam: Present: alert, oriented X3 Psychiatric exam: Present: normal affect, normal mood Skin exam: Present: warm, dry, intact, normal color. Absent: rash Course Vital Signs 09/09/17 16:54 Temperature 98.3 F Pulse Rate 97 Respiratory 18 Rate Blood Pressure 136/63 O2 Sat by Pulse 99 Oximetry Medical Decision Making - Medical Decision Making Patient presents with symptoms that she states are standard for her flareups of fibromyalgia and GERD. States nothing new about the symptoms today. States this occurs weekly over the past one year. No significant lab abnormalities. Patient reevaluated. Updated with all results. Patient states symptoms resolved status post medications. Patient feels comfortable being discharged home. All questions answered. Patient agrees to follow-up director auto. Prescription of Pepcid given. Patient to return to ER for new or worsening symptoms. Patient to discuss chronic pain management with primary care physician, possible pain management physician referral. Patient understands and agrees. at bedside understands and agrees. We'll discharge home at this time. - Lab Data Result diagrams: 09/09/17 18:24 09/09/17 18:24 Lab Results 09/09/17 09/09/17 09/09/17 Range/Units 18:24 18:24 18:26 WBC 7.2 (3.8-10.6) k/uL RBC 4.75 (3.80-5.40) m/uL Hgb 14.5 (11.4-16.0) gm/dL Hct 42.8 (34.0-46.0) % MCV 90.1 (80.0-100.0) fL MCH 30.4 (25.0-35.0) pg MCHC 33.8 (31.0-37.0) g/dL RDW 12.0 (11.5-15.5) % Plt Count 273 (150-450) k/uL Neutrophils % 55 % Lymphocytes % 37 % Monocytes % 5 % Eosinophils % 1 % Basophils % 1 % Neutrophils # 4.0 (1.3-7.7) k/uL Lymphocytes # 2.6 (1.0-4.8) k/uL Monocytes # 0.3 (0-1.0) k/uL Eosinophils # 0.1 (0-0.7) k/uL Basophils # 0.0 (0-0.2) k/uL Sodium 140 (137-145) mmol/L Potassium 4.4 (3.5-5.1) mmol/L Chloride 103 (98-107) mmol/L Carbon Dioxide 29 (22-30) mmol/L Anion Gap 8 mmol/L BUN 6 L (7-17) mg/dL Creatinine 0.53 (0.52-1.04) mg/dL Est GFR (MDRD) Af Amer >60 (>60 ml/min/1.73 sqM) Est GFR (MDRD) Non-Af >60 (>60 ml/min/1.73 sqM) Glucose 85 (74-99) mg/dL Calcium 9.4 (8.4-10.2) mg/dL Urine Color Urine Appearance (Clear) Urine pH (5.0-8.0) Ur Specific [place] (1.001-1.035) Urine Protein (Negative) Urine Glucose (UA) (Negative) Urine Ketones (Negative) Urine Blood (Negative) Urine Nitrite (Negative) Urine Bilirubin (Negative) Urine Urobilinogen (<2.0) mg/dL Ur Leukocyte Esterase (Negative) Urine HCG, Qual Not Detected (Not Detectd) 09/09/17 Range/Units 18:26 WBC (3.8-10.6) k/uL RBC (3.80-5.40) m/uL Hgb (11.4-16.0) gm/dL Hct (34.0-46.0) % MCV (80.0-100.0) fL MCH (25.0-35.0) pg MCHC (31.0-37.0) g/dL RDW (11.5-15.5) % Plt Count (150-450) k/uL Neutrophils % % Lymphocytes % % Monocytes % % Eosinophils % % Basophils % % Neutrophils # (1.3-7.7) k/uL Lymphocytes # (1.0-4.8) k/uL Monocytes # (0-1.0) k/uL Eosinophils # (0-0.7) k/uL Basophils # (0-0.2) k/uL Sodium (137-145) mmol/L Potassium (3.5-5.1) mmol/L Chloride (98-107) mmol/L Carbon Dioxide (22-30) mmol/L Anion Gap mmol/L BUN (7-17) mg/dL Creatinine (0.52-1.04) mg/dL Est GFR (MDRD) Af Amer (>60 ml/min/1.73 sqM) Est GFR (MDRD) Non-Af (>60 ml/min/1.73 sqM) Glucose (74-99) mg/dL Calcium (8.4-10.2) mg/dL Urine Color Light Yellow Urine Appearance Clear (Clear) Urine pH 7.0 (5.0-8.0) Ur Specific [place] 1.001 (1.001-1.035) Urine Protein Negative (Negative) Urine Glucose (UA) Negative (Negative) Urine Ketones Negative (Negative) Urine Blood Negative (Negative) Urine Nitrite Negative (Negative) Urine Bilirubin Negative (Negative) Urine Urobilinogen <2.0 (<2.0) mg/dL Ur Leukocyte Esterase Negative (Negative) Urine HCG, Qual (Not Detectd) Disposition Clinical Impression: Chronic pain, GERD (gastroesophageal reflux disease) Disposition: HOME SELF-CARE Condition: Good Instructions: Chronic Pain (ED), Gastroesophageal Reflux Disease (ED) Additional Instructions: Follow-up and urinalysis. Follow up with her primary care physician, discuss referral to pain management. Follow up with the director auto Prescriptions: Famotidine [Pepcid] 20 mg PO BID #20 tablet Referrals: Robert Tena MD [Primary Care Provider] - 1-2 days Anna Dutta MD [STAFF PHYSICIAN] - 1-2 days
[2017-09-09 18:32] LABS: Appearance,Urine Clear (Clear); Bilirubin,Urine Negative (Negative); Blood,Urine Negative (Negative); Color,Urine Light Yellow; Glucose,Urine (UA) Negative (Negative); Ketones,Urine Negative (Negative); Leukocyte Esterase,Urine Negative (Negative); Nitrite,Urine Negative (Negative); Protein,Urine Negative (Negative); Specific Gravity,Urine 1.001 (1.001-1.035); Urobilinogen,Urine <2.0 mg/dL (<2.0)
[2017-09-09 18:36] LABS: Basophils % (A) 1 %; Eosinophils # (A) 0.1 k/uL (0-0.7); Eosinophils % (A) 1 %; HCT 42.8 % (34.0-46.0); HGB 14.5 gm/dL (11.4-16.0); Lymphocytes # (A) 2.6 k/uL (1.0-4.8); Lymphocytes % (A) 37 %; MCH 30.4 pg (25.0-35.0); MCHC 33.8 g/dL (31.0-37.0); MCV 90.1 fL (80.0-100.0); Mean Platelet Volume 6.8; Monocytes # (A) 0.3 k/uL (0-1.0); Monocytes % (A) 5 %; Neutrophils % (A) 55 %; Platelet Count 273 k/uL (150-450); RBC 4.75 m/uL (3.80-5.40); WBC 7.2 k/uL (3.8-10.6)
[2017-09-09 18:51] LABS: Anion Gap 8 mmol/L; Blood Urea Nitrogen 6 mg/dL (7-17); Calcium 9.4 mg/dL (8.4-10.2); Carbon Dioxide 29 mmol/L (22-30); Chloride 103 mmol/L (98-107); Glucose 85 mg/dL (74-99); Potassium 4.4 mmol/L (3.5-5.1); Sodium 140 mmol/L (137-145)
[2017-09-09 19:39] VITALS: BP 114/70; PULSE 64
== END 2017-09-09 19:39 | disposition home or self-care (01) ==
LOC: EC 16:20
DX: K21.9 Gastro-esophageal reflux disease without esophagitis (principal); G89.29 Other chronic pain; R68.2 Dry mouth, unspecified; R53.83 Other fatigue; J44.9 Chronic obstructive pulmonary disease, unspecified; F32.9 Major depressive disorder, single episode, unspecified; F41.9 Anxiety disorder, unspecified; Z87.891 Personal history of nicotine dependence; Z79.51 Long term (current) use of inhaled steroids; Z79.1 Long term (current) use of non-steroidal anti-inflammatories (NSAID); Z79.899 Other long term (current) drug therapy; Z79.891 Long term (current) use of opiate analgesic; Z88.8 Allergy status to other drugs, medicaments and biological substances; Z91.013 Allergy to seafood; Z91.018 Allergy to other foods; Z91.09 Other allergy status, other than to drugs and biological substances
CPT/HCPCS: 36415; 80048; 85025; 81003; 81025; 99284; 96374; 96375; 96361; J2405

== ENCOUNTER → 2017-10-16 | Outpatient (CLI) | payer MEDICARE, OTHER ==
--- NOTE | 2017-10-17 10:42 | MM ---
Reason for exam: screening (asymptomatic). Last mammogram was performed 1 year and 2 months ago. Physical Findings: A clinical breast exam by your physician is recommended on an annual basis and results should be correlated with mammographic findings. MG 3D Screening Mammo W/Cad Bilateral CC and MLO view(s) were taken. Prior study comparison: August 29, 2016, bilateral MG 3d screening mammo w/cad. August 25, 2015, bilateral MG 3d screening mammo w/cad. The breast tissue is extremely dense which could obscure a lesion on mammography. Focal asymmetry seen best on CC view 3.9cm from nipple. ASSESSMENT: Incomplete: need additional imaging evaluation, BI-RAD 0 RECOMMENDATION: Special view mammogram and ultrasound of the right breast. [facility] will attempt to contact patient to return for supplemental views and ultrasound.
== END | disposition home or self-care (01) ==
LOC: RADMAMWWP 11:03
PROVIDERS: ATTEND Internal Medicine
DX: Z12.31 Encounter for screening mammogram for malignant neoplasm of breast (principal); R92.2 Inconclusive mammogram
CPT/HCPCS: 77063; 77067

== ENCOUNTER → 2017-10-23 | Outpatient (CLI) | payer MEDICARE, OTHER ==
--- NOTE | 2017-10-23 10:58 | MM ---
Reason for exam: additional evaluation requested from abnormal screening. Last mammogram was performed less than 1 month ago. Physical Findings: Nurse Summary: 1.5cm nodule in the right breast at 11 o'clock (nurse bailee). MG 3D Work Up W/Cad RT CC, MLO, and ML view(s) were taken of the right breast. Prior study comparison: October 16, 2017, bilateral MG 3d screening mammo w/cad. August 29, 2016, bilateral MG 3d screening mammo w/cad. The breast tissue is heterogeneously dense. This may lower the sensitivity of mammography. Palpable marker placed by nurse at 11 o'clock. The questioned anterior central asymmetric density becomes less defined on spot 3D. These results were verbally communicated with the patient and result sheet given to the patient on 10/23/17. ASSESSMENT: Incomplete: need additional imaging evaluation, BI-RAD 0 RECOMMENDATION: Ultrasound of the right breast.
--- NOTE | 2017-10-23 11:00 | USB ---
Reason for exam: additional evaluation requested from abnormal screening. US Breast Workup RT Right breast ultrasound includes all four quadrants, the retroareolar region and axilla. Finding demonstrates a 0.5 x 0.5 x 0.5cm cystic cluster at 11 o'clock. Heterogeneous mixed area at the palpable site, probable cyst cluster should be reassessed in 6 months. These results were verbally communicated with the patient and result sheet given to the patient on 10/23/17. ASSESSMENT: Probably benign, BI-RAD 3 RECOMMENDATION: Follow-up diagnostic mammogram and ultrasound of the right breast in 6 months. Manage on a clinical basis with regard to breast pain.
== END | disposition home or self-care (01) ==
LOC: RADMAMWWP 08:53
PROVIDERS: ATTEND Internal Medicine
DX: R92.8 Other abnormal and inconclusive findings on diagnostic imaging of breast (principal)
CPT/HCPCS: 77065; 76641; G0279

== ENCOUNTER 2018-03-05 22:26 | Emergency (ER) | payer MEDICARE, OTHER ==
[2018-03-05 22:31] VITALS: RESP 18
[2018-03-05] MEDS ORDERED: MORPHINE SULFATE 2 MG/ML SYRINGE IVP STA (23:49)
[2018-03-05] MEDS ORDERED: SODIUM CHLORIDE 0.9% 1,000 ML IV STA (23:49)
[2018-03-05] MEDS ORDERED: ONDANSETRON 4 MG/2 ML VIAL IVP STA (23:50)
[2018-03-05 23:53] LABS: Appearance,Urine Clear (Clear); Bilirubin,Urine Negative (Negative); Blood,Urine Negative (Negative); Color,Urine Light Yellow; Glucose,Urine (UA) Negative (Negative); Ketones,Urine Negative (Negative); Leukocyte Esterase,Urine Negative (Negative); Nitrite,Urine Negative (Negative); Protein,Urine Negative (Negative); Specific Gravity,Urine 1.004 (1.001-1.035); Urobilinogen,Urine <2.0 mg/dL (<2.0)
[2018-03-06 00:02] LABS: Basophils % (A) 0 %; Eosinophils # (A) 0.1 k/uL (0-0.7); Eosinophils % (A) 3 %; HGB 13.7 gm/dL (11.4-16.0); Lymphocytes # (A) 1.8 k/uL (1.0-4.8); Lymphocytes % (A) 33 %; MCHC 34.3 g/dL (31.0-37.0); MCV 87.5 fL (80.0-100.0); Mean Platelet Volume 6.9; Monocytes # (A) 0.4 k/uL (0-1.0); Monocytes % (A) 7 %; Neutrophils % (A) 55 %; Platelet Count 253 k/uL (150-450); RBC 4.58 m/uL (3.80-5.40); RDW 12.7 % (11.5-15.5); WBC 5.6 k/uL (3.8-10.6)
[2018-03-06 00:12] LABS: ALT 28 U/L (9-52); AST 19 U/L (14-36); Alkaline Phosphatase 47 U/L (38-126); Amylase 38 U/L (30-110); Anion Gap 6 mmol/L; Blood Urea Nitrogen 7 mg/dL (7-17); Calcium 9.1 mg/dL (8.4-10.2); Carbon Dioxide 27 mmol/L (22-30); Chloride 106 mmol/L (98-107); Glucose 84 mg/dL (74-99); Lipase 60 U/L (23-300); Sodium 139 mmol/L (137-145); Total Bilirubin 0.4 mg/dL (0.2-1.3); Total Protein 6.5 g/dL (6.3-8.2)
--- NOTE | 2018-03-06 00:32 | ED ---
General Adult HPI - General Chief complaint: Abdominal Pain Stated complaint: kidney pain Time Seen by Provider: 03/05/18 23:24 Source: patient, family, RN notes reviewed Mode of arrival: ambulatory Limitations: no limitations - History of Present Illness Initial comments: 47-year-old female presents to the emergency department for a chief complaint of lower abdominal pain 3 hours. Patient states she was laying in bed watching television when she started to notice a sharp lower abdominal pain on both sides. Patient states the pain is intermittent and comes and goes. Patient states the pain worsens with movement. Patient denies any nausea or vomiting. Patient does have a history of fibromyalgia but states this does not feel consistent with past episodes. Patient denies any shooting pains down bilateral legs. Patient denies any saddle anesthesia. Patient states she is urinating regularly and having normal bowel movements. However patient did have a harder stool earlier today. Patient has no other complaints at this time including shortness of breath, chest pain, abdominal pain, nausea or vomiting, headache, or visual changes. - Related Data Home Medications Medication Instructions Recorded Confirmed Albuterol Inhaler [Ventolin Hfa 2 puff INHALATION RT-Q4H PRN 12/16/16 03/05/18 Inhaler] Fluticasone Nasal [place] [Flonase 2 spr EA NOSTRIL DAILY 12/16/16 03/05/18 Nasal [place]] HYDROcodone/APAP 7.5-325MG [[place] 1 tab PO TID PRN 12/16/16 03/05/18 7.5-325] Loratadine [Claritin] 10 mg PO DAILY 12/16/16 03/05/18 Montelukast [Singulair] 10 mg PO DAILY 12/16/16 03/05/18 Pregabalin [Lyrica] 150 mg PO BID 12/16/16 03/05/18 Topiramate [Topamax] 100 mg PO BID 12/16/16 03/05/18 Oil Of Oregano 3 - 4 drops PO BID 12/19/16 03/05/18 Ascorbic Acid/Multivit-Min 1,000 mg PO DAILY 09/09/17 03/05/18 [Emergen-C 1,000 mg Packet] Brexpiprazole [Rexulti] 2 mg PO DAILY 09/09/17 03/05/18 Cholecalciferol [Vitamin D3] 1,000 unit PO BID 09/09/17 03/05/18 Co Q-10 50mg 50 mg PO DAILY 09/09/17 03/05/18 Collagen+C(2500mg) 1 tab PO TID 09/09/17 03/05/18 Echinacea + Zinc Lozenge 1 lozenge PO BID 09/09/17 03/05/18 Fish Oil/Dha/Epa [Fish Oil 1,200 1 cap PO DAILY 09/09/17 03/05/18 mg Fish Oil] Shruthi Slices 1 dose PO DAILY 09/09/17 03/05/18 Ibuprofen [Motrin] 600 mg PO Q8H PRN 09/09/17 03/05/18 Lysine [l-Lysine] 500 mg PO TID 09/09/17 03/05/18 Naproxen 500 mg PO BID 09/09/17 03/05/18 Oxybutynin Chloride 5 mg PO BID 09/09/17 03/05/18 Papaya [Papaya Enzyme] 4 tab PO TID 09/09/17 03/05/18 Spirulina (500mg) 500 mg PO Q4H 09/09/17 03/05/18 Turmeric Root Extract [Turmeric] 500 mg PO DAILY 09/09/17 03/05/18 Vitamin B Complex 1 cap PO DAILY 09/09/17 03/05/18 Vitamin E (Dl,Tocopheryl Acet) 400 unit PO BID 09/09/17 03/05/18 [Vitamin E] Zinc 50 mg PO DAILY 09/09/17 03/05/18 hydrOXYzine PAMOATE 25 mg PO QAM 09/09/17 03/05/18 hydrOXYzine PAMOATE 50 mg PO HS 09/09/17 03/05/18 Previous Rx's Medication Instructions Recorded Cyclobenzaprine [Flexeril] 10 mg PO TID #12 tab 12/19/16 Famotidine [Pepcid] 20 mg PO BID #20 tablet 09/09/17 Allergies Allergy/AdvReac Type Severity Reaction Status Date / Time cashew nut Allergy Unknown Verified 03/05/18 22:31 cat dander Allergy Unknown Verified 03/05/18 22:31 dog dander Allergy Unknown Verified 03/05/18 22:31 gabapentin Allergy Unknown Verified 03/05/18 22:31 mold Allergy Unknown Verified 03/05/18 22:31 shellfish derived [Shellfish] Allergy Anaphylaxis Verified 03/05/18 22:31 Review of Systems ROS Statement: Those systems with pertinent positive or pertinent negative responses have been documented in the HPI. ROS Other: All systems not noted in ROS Statement are negative. Past Medical History Past Medical History: COPD, Fibromyalgia Additional Past Medical History / Comment(s): intercostal neuritis, DDD, carpal tunnel, tennis elbow. History of Any Multi-Drug Resistant Organisms: None Reported Past Surgical History: No Surgical Hx Reported Past Anesthesia/Blood Transfusion Reactions: No Reported Reaction Past Psychological History: Anxiety, Depression Smoking Status: Current every day smoker Past Alcohol Use History: None Reported Past Drug Use History: None Reported - Past Family History Father Family Medical History: No Reported History Mother Family Medical History: Asthma, COPD, Diabetes Mellitus General Exam Limitations: no limitations General appearance: alert, in no apparent distress Head exam: Present: atraumatic, normocephalic, normal inspection Eye exam: Present: normal appearance. Absent: scleral icterus, conjunctival injection ENT exam: Present: normal exam, mucous membranes moist Neck exam: Present: normal inspection, full ROM. Absent: tenderness, meningismus, lymphadenopathy Respiratory exam: Present: normal lung sounds bilaterally. Absent: respiratory distress, wheezes, rales, rhonchi, stridor Cardiovascular Exam: Present: regular rate, normal rhythm, normal heart sounds. Absent: systolic murmur, diastolic murmur, rubs, gallop, clicks GI/Abdominal exam: Present: soft, tenderness (Patient has left lower quadrant tenderness as well as right lower quadrant), normal bowel sounds. Absent: distended, guarding, rebound, rigid Extremities exam: Present: normal capillary refill (Capillary refill less than 2 seconds in the lower extremities bilaterally. Pedal pulse 2+.). Absent: full ROM (Patient has limited range of motion including flexion of bilateral hips to about 90 when she starts to experience pain.), pedal edema, joint swelling, calf tenderness Back exam: Present: full ROM (Patient has about 90 flexion of the lumbar spine. Extension). Absent: tenderness (No tenderness in the lumbar spine) Neurological exam: Present: alert, oriented X3, CN II-XII intact Psychiatric exam: Present: normal affect, normal mood Course Vital Signs 08/08/18 08/09/18 08/09/18 22:29 01:19 02:56 Temperature 98.2 F 97 F L 98 F Pulse Rate 84 64 86 Respiratory 18 18 18 Rate Blood Pressure 128/81 110/56 112/56 O2 Sat by Pulse 99 100 100 Oximetry Medical Decision Making - Medical Decision Making 47-year-old female presents to the emergency department for a chief complaint of bilateral lower abdominal and hip pain 3 hours. Patient noticed the pain when she was sitting in bed watching TV. Patient states the pain is intermittent and sharp. On exam patient has lower abdominal tenderness in the left and right quadrants. Pain is worsened with flexion of the hips as well as movement. Neurovascular intact in lower extremities bilaterally. CBC and CMP unremarkable. Amylase and lipase negative. Urine shows no evidence of infection. CT abdomen and pelvis shows a negative scan. Normal appendix. On reevaluation patient is feeling much better and pain has decreased substantially. Discussed with patient that she could have a sprain of the groin area. Patient states she was operating a lawnmower and had difficulty starting it which may have caused the pain. Patient agrees to follow up with primary care in 1-2 days. Patient aware to return to the emergency Department if she has any worsening symptoms. - Lab Data Result diagrams: 03/05/18 23:31 03/05/18 23:31 Lab Results 03/05/18 03/05/18 03/05/18 Range/Units 23:30 23:30 23:31 WBC (3.8-10.6) k/uL RBC (3.80-5.40) m/uL Hgb (11.4-16.0) gm/dL Hct (34.0-46.0) % MCV (80.0-100.0) fL MCH (25.0-35.0) pg MCHC (31.0-37.0) g/dL RDW (11.5-15.5) % Plt Count (150-450) k/uL Neutrophils % % Lymphocytes % % Monocytes % % Eosinophils % % Basophils % % Neutrophils # (1.3-7.7) k/uL Lymphocytes # (1.0-4.8) k/uL Monocytes # (0-1.0) k/uL Eosinophils # (0-0.7) k/uL Basophils # (0-0.2) k/uL Sodium 139 (137-145) mmol/L Potassium 4.0 (3.5-5.1) mmol/L Chloride 106 (98-107) mmol/L Carbon Dioxide 27 (22-30) mmol/L Anion Gap 6 mmol/L BUN 7 (7-17) mg/dL Creatinine 0.50 L (0.52-1.04) mg/dL Est GFR (CKD-EPI)AfAm >90 (>60 ml/min/1.73 sqM) Est GFR (CKD-EPI)NonAf >90 (>60 ml/min/1.73 sqM) Glucose 84 (74-99) mg/dL Calcium 9.1 (8.4-10.2) mg/dL Total Bilirubin 0.4 (0.2-1.3) mg/dL AST 19 (14-36) U/L ALT 28 (9-52) U/L Alkaline Phosphatase 47 (38-126) U/L Total Protein 6.5 (6.3-8.2) g/dL Albumin 4.0 (3.5-5.0) g/dL Amylase 38 (30-110) U/L Lipase 60 (23-300) U/L Urine Color Light Yellow Urine Appearance Clear (Clear) Urine pH 7.0 (5.0-8.0) Ur Specific [place] 1.004 (1.001-1.035) Urine Protein Negative (Negative) Urine Glucose (UA) Negative (Negative) Urine Ketones Negative (Negative) Urine Blood Negative (Negative) Urine Nitrite Negative (Negative) Urine Bilirubin Negative (Negative) Urine Urobilinogen <2.0 (<2.0) mg/dL Ur Leukocyte Esterase Negative (Negative) Urine HCG, Qual Not Detected (Not Detectd) 03/05/18 Range/Units 23:31 WBC 5.6 (3.8-10.6) k/uL RBC 4.58 (3.80-5.40) m/uL Hgb 13.7 (11.4-16.0) gm/dL Hct 40.0 (34.0-46.0) % MCV 87.5 (80.0-100.0) fL MCH 30.0 (25.0-35.0) pg MCHC 34.3 (31.0-37.0) g/dL RDW 12.7 (11.5-15.5) % Plt Count 253 (150-450) k/uL Neutrophils % 55 % Lymphocytes % 33 % Monocytes % 7 % Eosinophils % 3 % Basophils % 0 % Neutrophils # 3.0 (1.3-7.7) k/uL Lymphocytes # 1.8 (1.0-4.8) k/uL Monocytes # 0.4 (0-1.0) k/uL Eosinophils # 0.1 (0-0.7) k/uL Basophils # 0.0 (0-0.2) k/uL Sodium (137-145) mmol/L Potassium (3.5-5.1) mmol/L Chloride (98-107) mmol/L Carbon Dioxide (22-30) mmol/L Anion Gap mmol/L BUN (7-17) mg/dL Creatinine (0.52-1.04) mg/dL Est GFR (CKD-EPI)AfAm (>60 ml/min/1.73 sqM) Est GFR (CKD-EPI)NonAf (>60 ml/min/1.73 sqM) Glucose (74-99) mg/dL Calcium (8.4-10.2) mg/dL Total Bilirubin (0.2-1.3) mg/dL AST (14-36) U/L ALT (9-52) U/L Alkaline Phosphatase (38-126) U/L Total Protein (6.3-8.2) g/dL Albumin (3.5-5.0) g/dL Amylase (30-110) U/L Lipase (23-300) U/L Urine Color Urine Appearance (Clear) Urine pH (5.0-8.0) Ur Specific [place] (1.001-1.035) Urine Protein (Negative) Urine Glucose (UA) (Negative) Urine Ketones (Negative) Urine Blood (Negative) Urine Nitrite (Negative) Urine Bilirubin (Negative) Urine Urobilinogen (<2.0) mg/dL Ur Leukocyte Esterase (Negative) Urine HCG, Qual (Not Detectd) Disposition Clinical Impression: Bilateral groin pain Disposition: HOME SELF-CARE Condition: Good Instructions: Abdominal Pain (ED) Additional Instructions: Please follow up with primary care in 1-2 days. Please return to the emergency department if you have any worsening symptoms. Continue to take [place] at home for pain management Is patient prescribed a controlled substance at d/c from ED?: No Referrals: Robert Tena MD [Primary Care Provider] - 1-2 days Time of Disposition: 01:53
--- NOTE | 2018-03-06 00:48 | CT ---
EXAMINATION TYPE: CT abdomen pelvis w con DATE OF EXAM: 03/06/2018 COMPARISON: None HISTORY: low abd pain CT DLP: 788.60 mGycm Automated exposure control for dose reduction was used. TECHNIQUE: Helical acquisition of images was performed from the lung bases through the pelvis. CONTRAST: Performed without Oral Contrast and with IV Contrast, patient injected with 100 mL of Isovue 300. FINDINGS: Lung bases are clear. There is no pleural effusion. There is no pericardial effusion. There is 1 cm cyst in the anterior right lobe of the liver. Bile ducts are not dilated. Gallbladder a ppears normal. Spleen appears normal. There is no pancreatic mass. There is no adrenal mass. Kidneys show satisfactory contrast opacification. There is no hydronephrosi s. There is no retroperitoneal adenopathy. Bladder distends smoothly. The uterus is anteverted. I see no bony destructive process. Lumbar spine is intact. There is no ascites. There is no sign of free a ir. Appendix appears normal. There is no intestinal wall thickening. There are no dilated loops. There is no sign of a hernia. IMPRESSION: NEGATIVE CT SCAN OF THE ABDOMEN AND PELVIS. NORMAL APPENDIX.
[2018-03-06 02:57] VITALS: BP 112/56; PULSE 86; TEMP 98
== END 2018-03-06 02:56 | disposition home or self-care (01) ==
LOC: EC 22:26
DX: R10.30 Lower abdominal pain, unspecified (principal); M25.551 Pain in right hip; M25.552 Pain in left hip; J44.9 Chronic obstructive pulmonary disease, unspecified; M79.7 Fibromyalgia; F41.9 Anxiety disorder, unspecified; F32.9 Major depressive disorder, single episode, unspecified; F17.200 Nicotine dependence, unspecified, uncomplicated; Z79.1 Long term (current) use of non-steroidal anti-inflammatories (NSAID); Z79.51 Long term (current) use of inhaled steroids; Z79.899 Other long term (current) drug therapy; Z88.8 Allergy status to other drugs, medicaments and biological substances; Z91.013 Allergy to seafood; Z91.018 Allergy to other foods; Z91.048 Other nonmedicinal substance allergy status
CPT/HCPCS: 99284; 96374; 96375; 96361; 36415; 80053; 82150; 83690; 85025; 81003; 81025; 74177; J2405; J2270; Q9967

== ENCOUNTER → 2018-03-05 | Outpatient (CLI) | payer MEDICARE, OTHER ==
[2018-03-05 09:41] VITALS: BP 122/87; PULSE 92; RESP 18; TEMP 98.3; BMI 61.9
--- NOTE | 2018-03-05 10:31 | P.HPOB ---
History of Present Illness H&P Date: 03/05/18 Chief Complaint: The patient is here for her routine gynecologic exam. This is a 47 year old with an LMP of 02/09/2018. The patient's 's status post vasectomy. Last year she was having problems with increased menstrual frequency every 2-3weeks. Endometrial biopsy on 03/20/2017 showed circulatory and disordered endometrium. She briefly used cyclic progestin therapy, but discontinued it because it made her "mean". She states her menses are now regular every month. She does have some hot flashes. She is otherwise without gynecologic complaints. Review of Systems The patient has lost 4 pounds over the last year. She denies respiratory, cardiac, or G.I. problems. Past Medical History Past Medical History: COPD, Fibromyalgia Additional Past Medical History / Comment(s): intercostal neuritis, DDD, carpal tunnel, tennis elbow, migraine headaches,IBS, and degenerative disc disease. 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 History of Any Multi-Drug Resistant Organisms: None Reported Additional Past Surgical History / Comment(s): VTP, cryotherapy of the cervix. Past Anesthesia/Blood Transfusion Reactions: No Reported Reaction Past Psychological History: Anxiety, Bipolar, Depression Smoking Status: Light tobacco smoker (1 pack can last 5 or more days.) Past Alcohol Use History: None Reported (Quit 2012) Past Drug Use History: None Reported Additional History: She has been since 2014 and is currently not working outside the home. - Past Family History Father Family Medical History: No Reported History Mother Family Medical History: Asthma, COPD, Diabetes Mellitus Medications and Allergies Home Medications Medication Instructions Recorded Confirmed Type Albuterol Inhaler [Ventolin Hfa 2 puff INHALATION RT-Q4H PRN 12/16/16 09/09/17 History Inhaler] Fluticasone Nasal [place] [Flonase 2 spr EA NOSTRIL DAILY 12/16/16 09/09/17 History Nasal [place]] HYDROcodone/APAP 7.5-325MG [[place] 1 tab PO TID PRN 12/16/16 09/09/17 History 7.5-325] Loratadine [Claritin] 10 mg PO DAILY 12/16/16 09/09/17 History Montelukast [Singulair] 10 mg PO DAILY 12/16/16 09/09/17 History Pregabalin [Lyrica] 150 mg PO BID 12/16/16 09/09/17 History Topiramate [Topamax] 100 mg PO BID 12/16/16 09/09/17 History Cyclobenzaprine [Flexeril] 10 mg PO TID #12 tab 12/19/16 09/09/17 Rx Oil Of Oregano 3 - 4 drops PO BID 12/19/16 09/09/17 History Ascorbic Acid/Multivit-Min 1,000 mg PO DAILY 09/09/17 09/09/17 History [Emergen-C 1,000 mg Packet] Brexpiprazole [Rexulti] 2 mg PO DAILY 09/09/17 09/09/17 History Cholecalciferol [Vitamin D3] 1,000 unit PO BID 09/09/17 09/09/17 History Co Q-10 50mg 50 mg PO DAILY 09/09/17 09/09/17 History Collagen+C(2500mg) 1 tab PO TID 09/09/17 09/09/17 History Echinacea + Zinc Lozenge 1 lozenge PO BID 09/09/17 09/09/17 History Famotidine [Pepcid] 20 mg PO BID #20 tablet 09/09/17 Rx Fish Oil/Dha/Epa [Fish Oil 1,200 1 cap PO DAILY 09/09/17 09/09/17 History mg Fish Oil] Shruthi Slices 1 dose PO DAILY 09/09/17 09/09/17 History Ibuprofen [Motrin] 600 mg PO Q8H PRN 09/09/17 09/09/17 History Lysine [l-Lysine] 500 mg PO TID 09/09/17 09/09/17 History Naproxen 500 mg PO BID 09/09/17 09/09/17 History Oxybutynin Chloride 5 mg PO BID 09/09/17 09/09/17 History Papaya [Papaya Enzyme] 4 tab PO TID 09/09/17 09/09/17 History Spirulina (500mg) 500 mg PO Q4H 09/09/17 09/09/17 History Turmeric Root Extract [Turmeric] 500 mg PO DAILY 09/09/17 09/09/17 History Vitamin B Complex 1 cap PO DAILY 09/09/17 09/09/17 History Vitamin E (Dl,Tocopheryl Acet) 400 unit PO BID 09/09/17 09/09/17 History [Vitamin E] Zinc 50 mg PO DAILY 09/09/17 09/09/17 History hydrOXYzine PAMOATE 25 mg PO QAM 09/09/17 09/09/17 History hydrOXYzine PAMOATE 50 mg PO HS 09/09/17 09/09/17 History Allergies Allergy/AdvReac Type Severity Reaction Status Date / Time cashew nut Allergy Unknown Verified 03/05/18 09:53 cat dander Allergy Unknown Verified 03/05/18 09:53 dog dander Allergy Unknown Verified 03/05/18 09:53 gabapentin Allergy Unknown Verified 03/05/18 09:53 mold Allergy Unknown Verified 03/05/18 09:53 shellfish derived [Shellfish] Allergy Anaphylaxis Verified 03/05/18 09:53 Exam Vital Signs Temp Pulse Resp BP 03/05/18 09:22 98.3 F 92 18 122/87 Intake and Output 03/04/18 03/05/18 03/05/18 22:59 06:59 14:59 Other: Weight 174 kg Height 5'6", weight 174 pounds (78.9 kg) (Note correction), BMI 28.1. This is a well-developed well-nourished white female who is alert and oriented times 3 in no acute distress. HEENT: Within normal limits. NECK: Supple without mass or thyromegaly. CHEST AND LUNGS: Clear to auscultation. HEART: Regular rate and rhythm. BREASTS: Are without mass or discharge. AXILLARY EXAM: Negative for adenopathy. BACK: Negative for CVA tenderness. ABDOMEN: Soft, nontender, without palpable masses. PELVIC EXAM: Normal external genitalia. Cervix and vagina appear normal. There is no unusual discharge. There is no evidence of prolapse. The uterus is midposition, nongravid size and nontender. There are no palpable adnexal masses or tenderness. RECTAL EXAM: rectovaginal exam is negative for mass or tenderness and is negative for occult blood. EXTREMITIES: Nontender. IMPRESSION: 1. 47-year-old female with normal gynecologic exam. 2. The patient's is status post vasectomy. 3. Improvement of menstrual frequency which may, or may not have been related to brief use of cyclic progestin. History of benign endometrial biopsy on . PLAN: 1. Pap smear was deferred since she had a negative one last year. 2. Self breast awareness was discussed with the patient. 3. Mammogram was recently done in September 2017. She is due for a right breast workup in March. She does have the order form from her primary care physician. 4. Osteoporosis prevention was discussed. 5. I have recommended that she try to quit smoking altogether. We've discussed many reasons why this is important. 6. She will return in one year.
== END ==
LOC: WWCWWP 09:20
PROVIDERS: ATTEND Obstetrics & Gynecology
DX: Z53.9 Procedure and treatment not carried out, unspecified reason (principal)

== ENCOUNTER 2018-04-17 11:46 | Emergency (ER) | payer MEDICARE, OTHER ==
[2018-04-17 12:15] VITALS: BP 125/80; PULSE 65; RESP 18; TEMP 98.4
[2018-04-17] MEDS ORDERED: MORPHINE SULFATE 4 MG/ML SYRINGE IM STA (13:06)
--- NOTE | 2018-04-17 13:08 | ED ---
General Adult HPI - General Chief complaint: Recheck/Abnormal Lab/Rx Stated complaint: pain all over Time Seen by Provider: 04/17/18 13:00 Source: patient, RN notes reviewed Mode of arrival: ambulatory Limitations: no limitations - History of Present Illness Initial comments: 47-year-old female presents emergency Department chief complaint of diffuse pain. Patient states that she has had nausea which is documented by her neurologist Dr. Bhardwaj. Patient states that she is having exacerbation of pain not controlled by her pain meds secondary to recent EMG study. Patient denies any focal weakness. Patient states that she did take her [place], Flexeril and ibuprofen with no relief. Patient denies any chest pain, shortness breath, headache, dizziness, nausea vomiting diarrhea constipation. - Related Data Home Medications Medication Instructions Recorded Confirmed Albuterol Inhaler [Ventolin Hfa 2 puff INHALATION RT-Q4H PRN 12/16/16 03/05/18 Inhaler] Fluticasone Nasal [place] [Flonase 2 spr EA NOSTRIL DAILY 12/16/16 03/05/18 Nasal [place]] HYDROcodone/APAP 7.5-325MG [[place] 1 tab PO TID PRN 12/16/16 03/05/18 7.5-325] Loratadine [Claritin] 10 mg PO DAILY 12/16/16 03/05/18 Montelukast [Singulair] 10 mg PO DAILY 12/16/16 03/05/18 Pregabalin [Lyrica] 150 mg PO BID 12/16/16 03/05/18 Topiramate [Topamax] 100 mg PO BID 12/16/16 03/05/18 Oil Of Oregano 3 - 4 drops PO BID 12/19/16 03/05/18 Ascorbic Acid/Multivit-Min 1,000 mg PO DAILY 09/09/17 03/05/18 [Emergen-C 1,000 mg Packet] Brexpiprazole [Rexulti] 2 mg PO DAILY 09/09/17 03/05/18 Cholecalciferol [Vitamin D3] 1,000 unit PO BID 09/09/17 03/05/18 Co Q-10 50mg 50 mg PO DAILY 09/09/17 03/05/18 Collagen+C(2500mg) 1 tab PO TID 09/09/17 03/05/18 Echinacea + Zinc Lozenge 1 lozenge PO BID 09/09/17 03/05/18 Fish Oil/Dha/Epa [Fish Oil 1,200 1 cap PO DAILY 09/09/17 03/05/18 mg Fish Oil] Shruthi Slices 1 dose PO DAILY 09/09/17 03/05/18 Ibuprofen [Motrin] 600 mg PO Q8H PRN 09/09/17 03/05/18 Lysine [l-Lysine] 500 mg PO TID 09/09/17 03/05/18 Naproxen 500 mg PO BID 09/09/17 03/05/18 Oxybutynin Chloride 5 mg PO BID 09/09/17 03/05/18 Papaya [Papaya Enzyme] 4 tab PO TID 09/09/17 03/05/18 Spirulina (500mg) 500 mg PO Q4H 09/09/17 03/05/18 Turmeric Root Extract [Turmeric] 500 mg PO DAILY 09/09/17 03/05/18 Vitamin B Complex 1 cap PO DAILY 09/09/17 03/05/18 Vitamin E (Dl,Tocopheryl Acet) 400 unit PO BID 09/09/17 03/05/18 [Vitamin E] Zinc 50 mg PO DAILY 09/09/17 03/05/18 hydrOXYzine PAMOATE 25 mg PO QAM 09/09/17 03/05/18 hydrOXYzine PAMOATE 50 mg PO HS 09/09/17 03/05/18 Previous Rx's Medication Instructions Recorded Cyclobenzaprine [Flexeril] 10 mg PO TID #12 tab 12/19/16 Famotidine [Pepcid] 20 mg PO BID #20 tablet 09/09/17 Allergies Allergy/AdvReac Type Severity Reaction Status Date / Time cashew nut Allergy Unknown Verified 04/17/18 12:15 cat dander Allergy Unknown Verified 04/17/18 12:15 dog dander Allergy Unknown Verified 04/17/18 12:15 gabapentin Allergy Unknown Verified 04/17/18 12:15 mold Allergy Unknown Verified 04/17/18 12:15 shellfish derived [Shellfish] Allergy Anaphylaxis Verified 04/17/18 12:15 steroids Allergy Unknown Uncoded 04/17/18 12:15 Review of Systems ROS Statement: Those systems with pertinent positive or pertinent negative responses have been documented in the HPI. ROS Other: All systems not noted in ROS Statement are negative. Past Medical History Past Medical History: COPD, Fibromyalgia Additional Past Medical History / Comment(s): intercostal neuritis, DDD, carpal tunnel, tennis elbow. History of Any Multi-Drug Resistant Organisms: None Reported Past Surgical History: No Surgical Hx Reported Additional Past Surgical History / Comment(s): VTP, cryotherapy of the cervix. Past Anesthesia/Blood Transfusion Reactions: No Reported Reaction Past Psychological History: Anxiety, Depression Smoking Status: Former smoker Past Alcohol Use History: None Reported Past Drug Use History: None Reported - Past Family History Father Family Medical History: No Reported History Mother Family Medical History: Asthma, COPD, Diabetes Mellitus General Exam Limitations: no limitations General appearance: alert, in no apparent distress Eye exam: Present: normal appearance, PERRL, EOMI. Absent: scleral icterus, conjunctival injection, periorbital swelling ENT exam: Present: normal exam, normal oropharynx, mucous membranes moist Neck exam: Present: normal inspection, full ROM. Absent: tenderness, meningismus, lymphadenopathy Respiratory exam: Present: normal lung sounds bilaterally. Absent: respiratory distress, wheezes, rales, rhonchi, stridor Cardiovascular Exam: Present: regular rate, normal rhythm, normal heart sounds. Absent: systolic murmur, diastolic murmur, rubs, gallop, clicks Neurological exam: Present: alert, oriented X3, CN II-XII intact Skin exam: Present: warm, dry, intact, normal color. Absent: rash Course Vital Signs 04/17/18 12:12 Temperature 98.4 F Pulse Rate 65 Respiratory 18 Rate Blood Pressure 125/80 O2 Sat by Pulse 99 Oximetry Medical Decision Making - Medical Decision Making 47-year-old female presented for chronic pain secondary to fibromyalgia. Patient will be given IM injection of pain medicine discharged. Return parameters discussed. Patient has a normal neuro exam normal physical exam. Disposition Clinical Impression: Chronic pain, Fibromyalgia Disposition: HOME SELF-CARE Condition: Stable Instructions: Fibromyalgia (ED) Additional Instructions: Please return to the Emergency Department if symptoms worsen or any other concerns. Is patient prescribed a controlled substance at d/c from ED?: No Referrals: Robert Tena MD [Primary Care Provider] - 1-2 days Time of Disposition: 13:08
== END 2018-04-17 13:24 | disposition home or self-care (01) ==
LOC: EC 11:46
DX: G89.29 Other chronic pain (principal); M79.7 Fibromyalgia; J44.9 Chronic obstructive pulmonary disease, unspecified; F32.9 Major depressive disorder, single episode, unspecified; Z91.018 Allergy to other foods; Z91.09 Other allergy status, other than to drugs and biological substances; Z91.048 Other nonmedicinal substance allergy status; Z91.013 Allergy to seafood; Z88.8 Allergy status to other drugs, medicaments and biological substances; Z87.891 Personal history of nicotine dependence
CPT/HCPCS: 96372; 99283

== ENCOUNTER → 2018-04-23 | Outpatient (CLI) | payer MEDICARE, OTHER ==
--- NOTE | 2018-04-23 15:07 | MM ---
Reason for exam: follow-up at short interval from prior study. Last mammogram was performed 6 months ago. Physical Findings: Nurse did not find any significant physical abnormalities on exam. MG 3D Diag Mammo W/Cad RT CC and MLO view(s) were taken of the right breast. Prior study comparison: October 23, 2017, right breast MG 3d work up w/cad RT. October 16, 2017, bilateral MG 3d screening mammo w/cad. The breast tissue is heterogeneously dense. This may lower the sensitivity of mammography. There is no discrete abnormality. These results were verbally communicated with the patient and result sheet given to the patient on 04/23/18. ASSESSMENT: Incomplete: need additional imaging evaluation, BI-RAD 0 RECOMMENDATION: Ultrasound of the right breast.
--- NOTE | 2018-04-23 15:11 | USB ---
Reason for exam: additional evaluation requested from abnormal screening. US Breast RT Right complete breast ultrasound includes all four quadrants, the retroareolar region and axilla. Finding demonstrates a 0.7 x 0.3 x 0.4cm mixed lesion at 11 o'clock. These results were verbally communicated with the patient and result sheet given to the patient on 04/23/18. ASSESSMENT: Suspicious, BI-RAD 4 RECOMMENDATION: Ultrasound core biopsy of the right breast. Patient is leaving for [place] 04/28/18 and will set up an appointment while there.
== END | disposition home or self-care (01) ==
LOC: RADMAMWWP 13:45
PROVIDERS: ATTEND Internal Medicine
DX: R92.8 Other abnormal and inconclusive findings on diagnostic imaging of breast (principal)
CPT/HCPCS: 77065; 76641; G0279; 77061

== ENCOUNTER 2018-11-29 14:02 | Emergency (ER) | payer MEDICARE, OTHER ==
[2018-11-29 14:06] VITALS: RESP 18; TEMP 98
[2018-11-29] MEDS ORDERED: MORPHINE SULFATE 4 MG/ML SYRINGE IM STA (14:19)
[2018-11-29] MEDS ORDERED: LIDOCAINE 5% PATCH TOPICAL STA (14:19)
--- NOTE | 2018-11-29 14:24 | ED ---
General Adult HPI - General Chief complaint: Back Pain/Injury Stated complaint: Back pain Time Seen by Provider: 11/29/18 14:10 Source: patient, RN notes reviewed Mode of arrival: ambulatory Limitations: no limitations - History of Present Illness Initial comments: 48-year-old female with a past medical history of fibromyalgia presents to the emergency department for a chief complaint of chronic pain. Patient states she sometimes gets into cycles of pain with her fibromyalgia and generally needs a shot to improve this. Patient states she is taking her other medications as directed and they are not currently helping. Patient states she does have an appointment with her apprentice painter hand in 3 days to discuss a change of treatment. Patient states the pain is in her low back as well as her bilateral sides. States his pain is consistent with similar pain. Denies any new injuries.Patient has no other complaints at this time including shortness of breath, chest pain, abdominal pain, nausea or vomiting, headache, or visual changes. - Related Data Home Medications Medication Instructions Recorded Confirmed Albuterol Inhaler [Ventolin Hfa 2 puff INHALATION RT-Q4H PRN 12/16/16 03/05/18 Inhaler] Fluticasone Nasal [place] [Flonase 2 spr EA NOSTRIL DAILY 12/16/16 03/05/18 Nasal [place]] HYDROcodone/APAP 7.5-325MG [[place] 1 tab PO TID PRN 12/16/16 03/05/18 7.5-325] Loratadine [Claritin] 10 mg PO DAILY 12/16/16 03/05/18 Montelukast [Singulair] 10 mg PO DAILY 12/16/16 03/05/18 Pregabalin [Lyrica] 150 mg PO BID 12/16/16 03/05/18 Topiramate [Topamax] 100 mg PO BID 12/16/16 03/05/18 Oil Of Oregano 3 - 4 drops PO BID 12/19/16 03/05/18 Ascorbic Acid/Multivit-Min 1,000 mg PO DAILY 09/09/17 03/05/18 [Emergen-C 1,000 mg Packet] Brexpiprazole [Rexulti] 2 mg PO DAILY 09/09/17 03/05/18 Cholecalciferol [Vitamin D3] 1,000 unit PO BID 09/09/17 03/05/18 Co Q-10 50mg 50 mg PO DAILY 09/09/17 03/05/18 Collagen+C(2500mg) 1 tab PO TID 09/09/17 03/05/18 Echinacea + Zinc Lozenge 1 lozenge PO BID 09/09/17 03/05/18 Fish Oil/Dha/Epa [Fish Oil 1,200 1 cap PO DAILY 09/09/17 03/05/18 mg Fish Oil] Shruthi Slices 1 dose PO DAILY 09/09/17 03/05/18 Ibuprofen [Motrin] 600 mg PO Q8H PRN 09/09/17 03/05/18 Lysine [l-Lysine] 500 mg PO TID 09/09/17 03/05/18 Naproxen 500 mg PO BID 09/09/17 03/05/18 Oxybutynin Chloride 5 mg PO BID 09/09/17 03/05/18 Papaya [Papaya Enzyme] 4 tab PO TID 09/09/17 03/05/18 Spirulina (500mg) 500 mg PO Q4H 09/09/17 03/05/18 Turmeric Root Extract [Turmeric] 500 mg PO DAILY 09/09/17 03/05/18 Vitamin B Complex 1 cap PO DAILY 09/09/17 03/05/18 Vitamin E (Dl,Tocopheryl Acet) 400 unit PO BID 09/09/17 03/05/18 [Vitamin E] Zinc 50 mg PO DAILY 09/09/17 03/05/18 hydrOXYzine PAMOATE 25 mg PO QAM 09/09/17 03/05/18 hydrOXYzine PAMOATE 50 mg PO HS 09/09/17 03/05/18 Previous Rx's Medication Instructions Recorded Cyclobenzaprine [Flexeril] 10 mg PO TID #12 tab 12/19/16 Famotidine [Pepcid] 20 mg PO BID #20 tablet 09/09/17 Lidocaine 5% Patch [Lidoderm 5% 1 patch TOPICAL DAILY PRN 5 Days 11/29/18 Patch] patch Allergies Allergy/AdvReac Type Severity Reaction Status Date / Time cashew nut Allergy Unknown Verified 04/17/18 12:15 cat dander Allergy Unknown Verified 04/17/18 12:15 dog dander Allergy Unknown Verified 04/17/18 12:15 gabapentin Allergy Unknown Verified 04/17/18 12:15 mold Allergy Unknown Verified 04/17/18 12:15 shellfish derived [Shellfish] Allergy Anaphylaxis Verified 04/17/18 12:15 steroids Allergy Unknown Uncoded 04/17/18 12:15 Review of Systems ROS Statement: Those systems with pertinent positive or pertinent negative responses have been documented in the HPI. ROS Other: All systems not noted in ROS Statement are negative. Past Medical History Past Medical History: COPD, Fibromyalgia Additional Past Medical History / Comment(s): intercostal neuritis, DDD, carpal tunnel, tennis elbow. History of Any Multi-Drug Resistant Organisms: None Reported Past Surgical History: No Surgical Hx Reported Additional Past Surgical History / Comment(s): VTP, cryotherapy of the cervix. Past Anesthesia/Blood Transfusion Reactions: No Reported Reaction Past Psychological History: Anxiety, Depression Smoking Status: Current every day smoker Past Alcohol Use History: None Reported Past Drug Use History: None Reported - Past Family History Father Family Medical History: No Reported History Mother Family Medical History: Asthma, COPD, Diabetes Mellitus General Exam Limitations: no limitations General appearance: alert, in no apparent distress Head exam: Present: atraumatic, normocephalic, normal inspection Eye exam: Present: normal appearance, PERRL, EOMI. Absent: scleral icterus, conjunctival injection, periorbital swelling ENT exam: Present: normal exam, mucous membranes moist Neck exam: Present: normal inspection, full ROM. Absent: tenderness, meningismus, lymphadenopathy Respiratory exam: Present: normal lung sounds bilaterally. Absent: respiratory distress, wheezes, rales, rhonchi, stridor Cardiovascular Exam: Present: regular rate, normal rhythm, normal heart sounds. Absent: systolic murmur, diastolic murmur, rubs, gallop, clicks GI/Abdominal exam: Present: soft, normal bowel sounds. Absent: distended, tenderness, guarding, rebound, rigid Extremities exam: Present: normal capillary refill (Capillary refill less than 2 seconds in lower extremities bilaterally) Back exam: Present: paraspinal tenderness (Denies tenderness noted to the back, no pinpoint tenderness), vertebral tenderness Neurological exam: Present: alert, oriented X3, CN II-XII intact Psychiatric exam: Present: normal affect, normal mood Course Vital Signs 11/29/18 14:04 Temperature 98.0 F Pulse Rate 70 Respiratory 18 Rate Blood Pressure 145/77 O2 Sat by Pulse 98 Oximetry Medical Decision Making - Medical Decision Making 48-year-old female presents to the emergency department for a chief complaint of chronic pain. Patient has history of fibromyalgia, states her pain medications are not helping. Patient has not come to the emergency department for pain for the past 9 months. Patient states she has been taking her medications as directed and has an appointment with her apprentice painter hand Dr. Bhardwaj in 3 days to discuss this. However patient states she sometimes needs IM injections to break her pain cycle. Patient denies any new pain, states this is all completely consistent with past pain. Denies any bladder or bowel changes or saddle anesthesia. No fevers or chills. Patient was given IM morphine and lidocaine. However she was discussed following up with Dr. Bhardwaj for further pain management and to return to the emergency Department if she has any worsening symptoms. Disposition Clinical Impression: Chronic pain, Fibromyalgia Disposition: HOME SELF-CARE Condition: Good Instructions (If sedation given, give patient instructions): Fibromyalgia (ED), Chronic Pain (ED) Additional Instructions: Please follow-up with Dr. Bhardwaj in one to 2 days. Continue to take your medications as directed. You may apply lidocaine patch as directed. Please return to the emergency department if you have any worsening symptoms. Prescriptions: Lidocaine 5% Patch [Lidoderm 5% Patch] 1 patch TOPICAL DAILY PRN 5 Days patch PRN Reason: Pain Is patient prescribed a controlled substance at d/c from ED?: No Referrals: Robert Tena MD [Primary Care Provider] - 1-2 days Alberto Bhardwaj MD [STAFF PHYSICIAN] - 1-2 days Time of Disposition: 14:23
[2018-11-29 15:25] VITALS: BP 145/65; PULSE 71
== END 2018-11-29 15:15 | disposition home or self-care (01) ==
LOC: EC 14:02
DX: G89.29 Other chronic pain (principal); M54.5 Low back pain; M79.7 Fibromyalgia; J44.9 Chronic obstructive pulmonary disease, unspecified; F32.9 Major depressive disorder, single episode, unspecified; F41.9 Anxiety disorder, unspecified; F17.200 Nicotine dependence, unspecified, uncomplicated; Z79.1 Long term (current) use of non-steroidal anti-inflammatories (NSAID); Z79.899 Other long term (current) drug therapy; Z91.013 Allergy to seafood; Z88.8 Allergy status to other drugs, medicaments and biological substances; Z91.09 Other allergy status, other than to drugs and biological substances; Z91.010 Allergy to peanuts
CPT/HCPCS: 99283; 96372; J2270

== ENCOUNTER 2018-12-01 16:47 | Emergency (ER) | payer MEDICARE, OTHER ==
[2018-12-01 16:52] VITALS: BP 138/58; PULSE 92; RESP 18; TEMP 98.7
[2018-12-01] MEDS ORDERED: MORPHINE SULFATE 4 MG/ML SYRINGE IM STA (17:11)
--- NOTE | 2018-12-01 17:11 | ED ---
General Adult HPI - General Chief complaint: Back Pain/Injury Stated complaint: Pain all over Time Seen by Provider: 12/01/18 16:55 Source: patient, RN notes reviewed, old records reviewed Mode of arrival: ambulatory Limitations: no limitations - History of Present Illness Initial comments: 48-year-old female patient past history of chronic pain, for myalgia, degenerative disc disease, carpal tunnel presents to ED for chronic pain. Patient ports that she is having pain consistent with her fibromyalgia. Patient ports that she has been out of her pain medication for a period of time due to a scheduling this. She does follow up with a chronic pain specialist. Patient with a chronic pain specialist. Patient requests pain control until tomorrow. Patient states that this pain is similar to her about myalgia pain is located trigger points in her back. Patient denies any chest pain shortness of breath. Patient denies any headache, fevers chills, nausea vomiting diarrhea. Systemic: Pt denies fatigue, fever/chills, rash. Pt denies weakness, night sweats, weight loss. Neuro: Pt denies headache, visual disturbances, syncope or pre-syncope. HEENT: Pt denies ocular discharge or irritation, otalgia, rhinorrhea, pharyngitis or notable lymphadenopathy. Cardiopulmonary: Pt denies chest pain, SOB, heart palpitations, dyspnea on exertion. Abdominal/GI: Pt denies abdominal pain, n/v/d. : Pt denies dysuria, burning w/ urination, frequency/urgency. Denies new onset urinary or bowel incontinence. MSK: Pt denies loss of strength or function in extremities. Neuro: Pt denies new onset weakness, paresthesias. - Related Data Home Medications Medication Instructions Recorded Confirmed Albuterol Inhaler [Ventolin Hfa 2 puff INHALATION RT-Q4H PRN 12/16/16 03/05/18 Inhaler] Fluticasone Nasal [place] [Flonase 2 spr EA NOSTRIL DAILY 12/16/16 03/05/18 Nasal [place]] HYDROcodone/APAP 7.5-325MG [[place] 1 tab PO TID PRN 12/16/16 03/05/18 7.5-325] Loratadine [Claritin] 10 mg PO DAILY 12/16/16 03/05/18 Montelukast [Singulair] 10 mg PO DAILY 12/16/16 03/05/18 Pregabalin [Lyrica] 150 mg PO BID 12/16/16 03/05/18 Topiramate [Topamax] 100 mg PO BID 12/16/16 03/05/18 Oil Of Oregano 3 - 4 drops PO BID 12/19/16 03/05/18 Ascorbic Acid/Multivit-Min 1,000 mg PO DAILY 09/09/17 03/05/18 [Emergen-C 1,000 mg Packet] Brexpiprazole [Rexulti] 2 mg PO DAILY 09/09/17 03/05/18 Cholecalciferol [Vitamin D3] 1,000 unit PO BID 09/09/17 03/05/18 Co Q-10 50mg 50 mg PO DAILY 09/09/17 03/05/18 Collagen+C(2500mg) 1 tab PO TID 09/09/17 03/05/18 Echinacea + Zinc Lozenge 1 lozenge PO BID 09/09/17 03/05/18 Fish Oil/Dha/Epa [Fish Oil 1,200 1 cap PO DAILY 09/09/17 03/05/18 mg Fish Oil] Shruthi Slices 1 dose PO DAILY 09/09/17 03/05/18 Ibuprofen [Motrin] 600 mg PO Q8H PRN 09/09/17 03/05/18 Lysine [l-Lysine] 500 mg PO TID 09/09/17 03/05/18 Naproxen 500 mg PO BID 09/09/17 03/05/18 Oxybutynin Chloride 5 mg PO BID 09/09/17 03/05/18 Papaya [Papaya Enzyme] 4 tab PO TID 09/09/17 03/05/18 Spirulina (500mg) 500 mg PO Q4H 09/09/17 03/05/18 Turmeric Root Extract [Turmeric] 500 mg PO DAILY 09/09/17 03/05/18 Vitamin B Complex 1 cap PO DAILY 09/09/17 03/05/18 Vitamin E (Dl,Tocopheryl Acet) 400 unit PO BID 09/09/17 03/05/18 [Vitamin E] Zinc 50 mg PO DAILY 09/09/17 03/05/18 hydrOXYzine PAMOATE 25 mg PO QAM 09/09/17 03/05/18 hydrOXYzine PAMOATE 50 mg PO HS 09/09/17 03/05/18 Previous Rx's Medication Instructions Recorded Cyclobenzaprine [Flexeril] 10 mg PO TID #12 tab 12/19/16 Famotidine [Pepcid] 20 mg PO BID #20 tablet 09/09/17 Lidocaine 5% Patch [Lidoderm 5% 1 patch TOPICAL DAILY PRN 5 Days 11/29/18 Patch] patch Allergies Allergy/AdvReac Type Severity Reaction Status Date / Time cashew nut Allergy Unknown Verified 12/01/18 16:51 cat dander Allergy Unknown Verified 12/01/18 16:51 dog dander Allergy Unknown Verified 12/01/18 16:51 gabapentin Allergy Unknown Verified 12/01/18 16:51 mold Allergy Unknown Verified 12/01/18 16:51 shellfish derived [Shellfish] Allergy Anaphylaxis Verified 12/01/18 16:51 steroids Allergy Unknown Uncoded 12/01/18 16:51 Review of Systems ROS Statement: Those systems with pertinent positive or pertinent negative responses have been documented in the HPI. ROS Other: All systems not noted in ROS Statement are negative. Past Medical History Past Medical History: COPD, Fibromyalgia Additional Past Medical History / Comment(s): intercostal neuritis, DDD, carpal tunnel, tennis elbow. History of Any Multi-Drug Resistant Organisms: None Reported Past Surgical History: No Surgical Hx Reported Additional Past Surgical History / Comment(s): VTP, cryotherapy of the cervix. Past Anesthesia/Blood Transfusion Reactions: No Reported Reaction Past Psychological History: Anxiety, Depression Smoking Status: Current every day smoker Past Alcohol Use History: None Reported Past Drug Use History: None Reported - Past Family History Father Family Medical History: No Reported History Mother Family Medical History: Asthma, COPD, Diabetes Mellitus General Exam - General Exam Comments Initial Comments: Constitutional: NAD, AOX3, Pt has pleasant affect. HEENT: NC/AT, trachea midline, neck supple, no lymphadenopathy. Posterior pharynx non erythematous, without exudates. External ears appear normal, without discharge. Mucous membranes moist. Eyes PERRLA, EOM intact. There is no scleral icterus. No pallor noted. Cardiopulmonary: RRR, no murmurs, rubs or gallops, no JVD noted. Lungs CTAB in anterior and posterior bell. No peripheral edema. Abdominal exam: Abdomen soft and non-distended. Abdomen non-tender to palpation in all 4 quadrants. Bowel sounds active in LLQ. No hepatosplenomegaly. No ecchymosis Neuro: CN II-XII grossly intact. No nuchal rigidity. MSK: No posterior calf tenderness bilaterally, homans sign negative bilaterally. Posterior tibialis and radial pulse +2 bilaterally. Sensation intact in upper and lower extremities. Full active ROM in upper and lower extremities, 5/5 stregnth. Limitations: no limitations Course Vital Signs 12/01/18 16:49 Temperature 98.7 F Pulse Rate 92 Respiratory 18 Rate Blood Pressure 138/58 O2 Sat by Pulse 100 Oximetry Medical Decision Making - Medical Decision Making 48-year-old female patient past history of chronic pain, for myalgia, degenerative disc disease, carpal tunnel presents to ED for chronic pain. Patient ports that she is having pain consistent with her fibromyalgia. Patient ports that she has been out of her pain medication for a period of time due to a scheduling this. She does follow up with a chronic pain specialist. Patient with a chronic pain specialist. Patient requests pain control until tomorrow. Patient states that this pain is similar to her about myalgia pain is located trigger points in her back. Patient denies any chest pain shortness of breath. Patient denies any headache, fevers chills, nausea vomiting diarrhea. Pt VSS, afebrile. Physical exam denies placing pathology. Patient administered 1 dose of pain medication. Pt not driving home. Patient discharged. Patient to follow up with chronic pain management tomorrow. Return to ER if condition worsens in any way. Case discussed with Dr. Vauhgan. Disposition Clinical Impression: Chronic pain Disposition: HOME SELF-CARE Condition: Stable Instructions (If sedation given, give patient instructions): Chronic Pain (ED) Additional Instructions: Patient to adhere to previously discussed treatment plan and will take medication(s) as directed. Patient to follow up with PCP in 1-2 days. Patient to return to ED if symptoms do not improve. Do not drive home. Follow up with primary care provider in 1-2 days. Follow with pain management tomorrow. Return to ER condition worsens. Is patient prescribed a controlled substance at d/c from ED?: No Referrals: Robert Tena MD [Primary Care Provider] - 1-2 days
== END 2018-12-01 17:24 | disposition home or self-care (01) ==
LOC: EC 16:47
DX: G89.29 Other chronic pain (principal); M54.9 Dorsalgia, unspecified; M79.7 Fibromyalgia; J44.9 Chronic obstructive pulmonary disease, unspecified; F32.9 Major depressive disorder, single episode, unspecified; F41.9 Anxiety disorder, unspecified; F17.200 Nicotine dependence, unspecified, uncomplicated; Z79.899 Other long term (current) drug therapy; Z79.1 Long term (current) use of non-steroidal anti-inflammatories (NSAID); Z91.018 Allergy to other foods; Z91.013 Allergy to seafood; Z88.8 Allergy status to other drugs, medicaments and biological substances; Z91.09 Other allergy status, other than to drugs and biological substances
CPT/HCPCS: 99283; 96372; J2270

== ENCOUNTER 2019-01-21 21:45 | Emergency (ER) | payer MEDICARE, OTHER ==
[2019-01-21 21:51] VITALS: TEMP 97.5
[2019-01-21] MEDS ORDERED: KETOROLAC 30 MG/ML 1 ML VIAL IM STA (22:33)
[2019-01-21] MEDS ORDERED: MORPHINE SULFATE 4 MG/ML SYRINGE IM STA (22:33)
--- NOTE | 2019-01-21 22:35 | ED ---
General Adult HPI - General Chief complaint: Back Pain/Injury Stated complaint: pain everywhere Time Seen by Provider: 01/21/19 21:55 Source: patient Mode of arrival: ambulatory Limitations: physical limitation - History of Present Illness Initial comments: 48-year-old female patient with past medical history significant for degenerative disc disease and fibromyalgia presents to the emergency department today for evaluation of mid back pain radiating to both flanks. Patient states that the symptoms are consistent with her usual exacerbations of pain. Patient states that she does take [place], Flexeril, and ibuprofen which usually controls her pain well but today is not helping. Patient states when this happened she usually comes and gets an injection of morphine which relieves her symptoms. She denies any chest pain, shortness of breath, abdominal pain, nausea, or vomiting. Denies any hematuria, dysuria, urinary frequency, urinary urgency. Denies any fever or chills. Denies any new symptoms with this. States it's are all symptoms she has had in the past which is consistent with her fibromyalgia and degenerative disc flareups. Patient denies any recent rash, diarrhea, constipation, back pain, numbness, tingling, dizziness, weakness, headache, visual changes, or any other complaints. - Related Data Home Medications Medication Instructions Recorded Confirmed Albuterol Inhaler [Ventolin Hfa 2 puff INHALATION RT-Q4H PRN 12/16/16 01/21/19 Inhaler] Ascorbic Acid/Multivit-Min 1,000 mg PO DAILY 09/09/17 01/21/19 [Emergen-C 1,000 mg Packet] Cholecalciferol [Vitamin D3] 1,000 unit PO BID 09/09/17 01/21/19 Collagen+C(2500mg) 1 tab PO TID 09/09/17 01/21/19 Fish Oil/Dha/Epa [Fish Oil 1,200 1 cap PO DAILY 09/09/17 01/21/19 mg Fish Oil] Papaya [Papaya Enzyme] 4 tab PO TID 09/09/17 01/21/19 Turmeric Root Extract [Turmeric] 500 mg PO DAILY 09/09/17 01/21/19 Vitamin B Complex 1 cap PO DAILY 09/09/17 01/21/19 Vitamin E (Dl,Tocopheryl Acet) 400 unit PO BID 09/09/17 01/21/19 [Vitamin E] Zinc 50 mg PO DAILY 09/09/17 01/21/19 Ibuprofen 800 mg PO TID 12/01/18 01/21/19 Cyclobenzaprine [Flexeril] 10 mg PO BID 01/21/19 01/21/19 HYDROcodone/APAP 10-325MG [[place] 1 tab PO TID 01/21/19 01/21/19 10-325] Magnesium Oxide [Mag-Ox] 400 mg PO DAILY 01/21/19 01/21/19 Multivitamins, Thera [Multivitamin 1 tab PO DAILY 01/21/19 01/21/19 (formulary)] Oil Of Oregano 4 drops PO QID 01/21/19 01/21/19 Pregabalin [Lyrica] 150 mg PO BID 01/21/19 01/21/19 Spirulina (500mg) 500 mg PO BID 01/21/19 01/21/19 Tiotropium 18 Mcg/Puff [Spiriva] 1 puff INHALATION RT-DAILY 01/21/19 01/21/19 Allergies Allergy/AdvReac Type Severity Reaction Status Date / Time cashew nut Allergy Unknown Verified 12/01/18 16:51 cat dander Allergy Unknown Verified 12/01/18 16:51 dog dander Allergy Unknown Verified 12/01/18 16:51 erythromycin base Allergy Unknown Verified 01/21/19 22:06 gabapentin Allergy Unknown Verified 12/01/18 16:51 mold Allergy Unknown Verified 12/01/18 16:51 shellfish derived [Shellfish] Allergy Anaphylaxis Verified 12/01/18 16:51 steroids Allergy Unknown Uncoded 12/01/18 16:51 Review of Systems ROS Statement: Those systems with pertinent positive or pertinent negative responses have been documented in the HPI. ROS Other: All systems not noted in ROS Statement are negative. Past Medical History Past Medical History: COPD, Fibromyalgia Additional Past Medical History / Comment(s): intercostal neuritis, DDD, carpal tunnel, tennis elbow. History of Any Multi-Drug Resistant Organisms: None Reported Past Surgical History: No Surgical Hx Reported Additional Past Surgical History / Comment(s): VTP, cryotherapy of the cervix. Past Anesthesia/Blood Transfusion Reactions: No Reported Reaction Past Psychological History: Anxiety, Depression Smoking Status: Current every day smoker Past Alcohol Use History: None Reported Past Drug Use History: None Reported - Past Family History Father Family Medical History: No Reported History Mother Family Medical History: Asthma, COPD, Diabetes Mellitus General Exam Limitations: physical limitation General appearance: alert, in no apparent distress, other (Physical well- developed, well-nourished adult female patient in no acute distress. Vital signs upon presentation are temperature 97.5F, pulse 83, respirations 16, blood pressure 122/80, pulse ox 100% on room air.) Eye exam: Present: normal appearance, PERRL, EOMI. Absent: scleral icterus, conjunctival injection, periorbital swelling ENT exam: Present: normal exam, normal oropharynx, mucous membranes moist Respiratory exam: Present: normal lung sounds bilaterally. Absent: respiratory distress, wheezes, rales, rhonchi, stridor Cardiovascular Exam: Present: regular rate, normal rhythm, normal heart sounds. Absent: systolic murmur, diastolic murmur, rubs, gallop, clicks GI/Abdominal exam: Present: soft, normal bowel sounds. Absent: distended, tenderness, guarding, rebound, rigid Back exam: Present: normal inspection Neurological exam: Present: alert, oriented X3, CN II-XII intact Psychiatric exam: Present: normal affect, normal mood Skin exam: Present: warm, dry, intact, normal color. Absent: rash Course Vital Signs 01/21/19 01/21/19 21:47 23:28 Temperature 97.5 F L 97.5 F L Pulse Rate 83 75 Respiratory 16 18 Rate Blood Pressure 122/80 127/59 O2 Sat by Pulse 100 100 Oximetry Medical Decision Making - Medical Decision Making 48-year-old female patient presents to the emergency department today for exacerbation of her fibromyalgia and degenerative disc disease. Patient is reporting thoracic and flank pain which is consistent with her usual flares of fibromyalgia and chronic back pain. Patient states that she usually gets a morphine injection and is discharged. Physical examination is unremarkable. She is neurologically intact with no focal deficits. No fever. Vital signs are stable. She'll be discharged after receiving pain medications here. She is instructed to follow-up with her primary care physician for recheck in 1-2 days. Return parameters discussed in detail. She verbalizes understanding and agrees with this plan. Disposition Clinical Impression: Fibromyalgia, Chronic back pain Disposition: ADMITTED IP TO THIS HOSP Condition: Serious Instructions (If sedation given, give patient instructions): Fibromyalgia (ED), Chronic Back Pain (DC) Additional Instructions: Continue all medications as instructed. Follow-up with her pain management physician for recheck as soon as possible. Return to the emergency department immediately for any new, worsening, or concerning symptoms. MEDICATIONS RECEIVED IN THE EMERGENCY DEPARTMENT: Morphine 4mg Intramuscular Toradol 30mg Intramuscular Is patient prescribed a controlled substance at d/c from ED?: No Referrals: Robert Tena MD [REFERRING] - 1-2 days Time of Disposition: 22:35
[2019-01-21 23:30] VITALS: BP 127/59; PULSE 75; RESP 18
== END 2019-01-21 23:28 | disposition other institution (70) ==
LOC: EC 21:45
DX: M79.7 Fibromyalgia (principal); G89.29 Other chronic pain; J44.9 Chronic obstructive pulmonary disease, unspecified; F17.200 Nicotine dependence, unspecified, uncomplicated; Z87.39 Personal history of other diseases of the musculoskeletal system and connective tissue; Z79.1 Long term (current) use of non-steroidal anti-inflammatories (NSAID); Z79.899 Other long term (current) drug therapy; Z91.018 Allergy to other foods; Z91.048 Other nonmedicinal substance allergy status; Z88.1 Allergy status to other antibiotic agents; Z88.8 Allergy status to other drugs, medicaments and biological substances; Z91.013 Allergy to seafood
CPT/HCPCS: 99283; 96372 ×2; J2270; J1885

== ENCOUNTER 2019-04-06 15:46 | Emergency (ER) | payer MEDICARE, OTHER ==
[2019-04-06 15:54] VITALS: RESP 18
[2019-04-06] MEDS ORDERED: SODIUM CHLORIDE 0.9% 1,000 ML IV STA (16:03)
--- NOTE | 2019-04-06 16:07 | ED ---
Weakness HPI - General Chief complaint: Weakness Stated complaint: weakness/SOB Time Seen by Provider: 04/06/19 15:58 Source: patient, RN notes reviewed, old records reviewed Mode of arrival: wheelchair - History of Present Illness Initial comments: This is a 48-year-old female the ER for evaluation. Patient presents today for evaluation of dizziness and weakness. Patient feels increasing fatigue. Not feeling well for throughout the weekend since Saturday. No recent change in medications. Patient has been struggling with mental health and some depression issues since passing of her earlier this summer. Patient denies any headache chest pain shortness breath or bowel pain does have some weight loss related to decreased appetite secondary to not feeling herself. No recent change in medications. MD Complaint: generalized weakness, lack of energy -: days(s) Location: generalized Severity: mild Severity scale (1-10): 4 Consistency: constant Improves with: none Worsens with: none Context: depression Associated Symptoms: loss of appetite - Related Data Home Medications Medication Instructions Recorded Confirmed Albuterol Inhaler [Ventolin Hfa 2 puff INHALATION RT-Q4H PRN 12/16/16 04/06/19 Inhaler] Ibuprofen 800 mg PO TID 12/01/18 04/06/19 Cyclobenzaprine [Flexeril] 10 mg PO BID 01/21/19 04/06/19 HYDROcodone/APAP 10-325MG [[place] 1 tab PO TID 01/21/19 04/06/19 10-325] Pregabalin [Lyrica] 150 mg PO BID 01/21/19 04/06/19 Escitalopram Oxalate [Lexapro] 20 mg PO HS 04/06/19 04/06/19 Tiotropium [place] [Spiriva 2 puff INHALATION RT-DAILY 04/06/19 04/06/19 Respimat] Allergies Allergy/AdvReac Type Severity Reaction Status Date / Time cashew nut Allergy Unknown Verified 04/06/19 16:41 cat dander Allergy Unknown Verified 04/06/19 16:41 dog dander Allergy Unknown Verified 04/06/19 16:41 erythromycin base Allergy Unknown Verified 04/06/19 16:41 gabapentin Allergy Unknown Verified 04/06/19 16:41 mold Allergy Unknown Verified 04/06/19 16:41 shellfish derived [Shellfish] Allergy Anaphylaxis Verified 04/06/19 16:41 Iodinated Contrast- Oral and AdvReac Unknown Verified 04/06/19 16:46 IV Dye steroids Allergy Unknown Uncoded 04/06/19 15:54 Review of Systems ROS Statement: Those systems with pertinent positive or pertinent negative responses have been documented in the HPI. ROS Other: All systems not noted in ROS Statement are negative. Past Medical History Past Medical History: COPD, Fibromyalgia Additional Past Medical History / Comment(s): intercostal neuritis, DDD, carpal tunnel, tennis elbow. History of Any Multi-Drug Resistant Organisms: None Reported Past Surgical History: No Surgical Hx Reported Additional Past Surgical History / Comment(s): VTP, cryotherapy of the cervix. Past Anesthesia/Blood Transfusion Reactions: No Reported Reaction Past Psychological History: Anxiety, Depression Smoking Status: Current every day smoker Past Alcohol Use History: None Reported Past Drug Use History: None Reported - Past Family History Father Family Medical History: No Reported History Mother Family Medical History: Asthma, COPD, Diabetes Mellitus General Exam General appearance: alert, in no apparent distress Head exam: Present: atraumatic, normocephalic, normal inspection Eye exam: Present: normal appearance, EOMI. Absent: scleral icterus, conjunctival injection, periorbital swelling ENT exam: Present: normal exam, mucous membranes moist Neck exam: Present: normal inspection. Absent: tenderness, meningismus, lymphadenopathy Respiratory exam: Present: normal lung sounds bilaterally. Absent: respiratory distress, wheezes, rales, rhonchi, stridor Cardiovascular Exam: Present: regular rate, normal rhythm, normal heart sounds. Absent: systolic murmur, diastolic murmur, rubs, gallop, clicks GI/Abdominal exam: Present: soft, normal bowel sounds. Absent: distended, tenderness, guarding, rebound, rigid Extremities exam: Present: normal inspection, full ROM, normal capillary refill. Absent: tenderness, pedal edema, joint swelling, calf tenderness Back exam: Present: normal inspection Neurological exam: Present: alert, oriented X3 Psychiatric exam: Present: normal affect, normal mood Skin exam: Present: warm, dry, intact, normal color. Absent: rash Course Vital Signs 04/06/19 04/06/19 04/06/19 15:51 17:30 19:30 Temperature 98.3 F Pulse Rate 82 65 67 Respiratory 18 18 18 Rate Blood Pressure 130/83 124/50 126/58 O2 Sat by Pulse 99 100 98 Oximetry - Reevaluation(s) Reevaluation #1: 04/06/19 16:07 Medical records reviewed Reevaluation #2: 04/06/19 20:10 Patient seen evaluated with psychiatry, given follow-up instructions EKG Findings - EKG Comments: EKG Findings:: EKG shows sinus rhythm rate of 73, CT 170, QRS 84, QTc 407 Medical Decision Making - Medical Decision Making Way female from nonspecific fatigue may be some mild depression. Patient is not suicidal or homicidal. No drug or alcohol abuse. Patient can be discharged home - Lab Data Result diagrams: 04/06/19 16:20 04/06/19 16:20 Lab Results 04/06/19 04/06/19 04/06/19 Range/Units 16:20 16:20 16:20 WBC 7.1 (3.8-10.6) k/uL RBC 4.52 (3.80-5.40) m/uL Hgb 13.8 (11.4-16.0) gm/dL Hct 41.3 (34.0-46.0) % MCV 91.3 (80.0-100.0) fL MCH 30.5 (25.0-35.0) pg MCHC 33.4 (31.0-37.0) g/dL RDW 13.1 (11.5-15.5) % Plt Count 240 (150-450) k/uL Neutrophils % 62 % Lymphocytes % 30 % Monocytes % 4 % Eosinophils % 2 % Basophils % 1 % Neutrophils # 4.4 (1.3-7.7) k/uL Lymphocytes # 2.1 (1.0-4.8) k/uL Monocytes # 0.3 (0-1.0) k/uL Eosinophils # 0.1 (0-0.7) k/uL Basophils # 0.0 (0-0.2) k/uL PT (9.0-12.0) sec INR (<1.2) APTT (22.0-30.0) sec Sodium 139 (137-145) mmol/L Potassium 3.7 (3.5-5.1) mmol/L Chloride 107 (98-107) mmol/L Carbon Dioxide 25 (22-30) mmol/L Anion Gap 7 mmol/L BUN 7 (7-17) mg/dL Creatinine 0.53 (0.52-1.04) mg/dL Est GFR (CKD-EPI)AfAm >90 (>60 ml/min/1.73 sqM) Est GFR (CKD-EPI)NonAf >90 (>60 ml/min/1.73 sqM) Glucose 82 (74-99) mg/dL Plasma Lactic Acid Cal (0.7-2.0) mmol/L Calcium 9.0 (8.4-10.2) mg/dL Phosphorus 3.4 (2.5-4.5) mg/dL Magnesium 1.8 (1.6-2.3) mg/dL Total Bilirubin 0.6 (0.2-1.3) mg/dL AST 16 (14-36) U/L ALT 16 (9-52) U/L Alkaline Phosphatase 42 (38-126) U/L Creatine Kinase 43 (30-135) U/L CK-MB (CK-2) 0.3 (0.0-2.4) ng/mL Troponin I <0.012 (0.000-0.034) ng/mL NT-Pro-B Natriuret Pep pg/mL Total Protein 6.5 (6.3-8.2) g/dL Albumin 3.8 (3.5-5.0) g/dL TSH 3.620 (0.465-4.680) mIU/L Urine Color Urine Appearance (Clear) Urine pH (5.0-8.0) Ur Specific [place] (1.001-1.035) Urine Protein (Negative) Urine Glucose (UA) (Negative) Urine Ketones (Negative) Urine Blood (Negative) Urine Nitrite (Negative) Urine Bilirubin (Negative) Urine Urobilinogen (<2.0) mg/dL Ur Leukocyte Esterase (Negative) 04/06/19 04/06/19 04/06/19 Range/Units 16:20 16:20 16:20 WBC (3.8-10.6) k/uL RBC (3.80-5.40) m/uL Hgb (11.4-16.0) gm/dL Hct (34.0-46.0) % MCV (80.0-100.0) fL MCH (25.0-35.0) pg MCHC (31.0-37.0) g/dL RDW (11.5-15.5) % Plt Count (150-450) k/uL Neutrophils % % Lymphocytes % % Monocytes % % Eosinophils % % Basophils % % Neutrophils # (1.3-7.7) k/uL Lymphocytes # (1.0-4.8) k/uL Monocytes # (0-1.0) k/uL Eosinophils # (0-0.7) k/uL Basophils # (0-0.2) k/uL PT 9.9 (9.0-12.0) sec INR 0.9 (<1.2) APTT 23.1 (22.0-30.0) sec Sodium (137-145) mmol/L Potassium (3.5-5.1) mmol/L Chloride (98-107) mmol/L Carbon Dioxide (22-30) mmol/L Anion Gap mmol/L BUN (7-17) mg/dL Creatinine (0.52-1.04) mg/dL Est GFR (CKD-EPI)AfAm (>60 ml/min/1.73 sqM) Est GFR (CKD-EPI)NonAf (>60 ml/min/1.73 sqM) Glucose (74-99) mg/dL Plasma Lactic Acid Cal 0.7 (0.7-2.0) mmol/L Calcium (8.4-10.2) mg/dL Phosphorus (2.5-4.5) mg/dL Magnesium (1.6-2.3) mg/dL Total Bilirubin (0.2-1.3) mg/dL AST (14-36) U/L ALT (9-52) U/L Alkaline Phosphatase (38-126) U/L Creatine Kinase (30-135) U/L CK-MB (CK-2) (0.0-2.4) ng/mL Troponin I (0.000-0.034) ng/mL NT-Pro-B Natriuret Pep 173 pg/mL Total Protein (6.3-8.2) g/dL Albumin (3.5-5.0) g/dL TSH (0.465-4.680) mIU/L Urine Color Urine Appearance (Clear) Urine pH (5.0-8.0) Ur Specific [place] (1.001-1.035) Urine Protein (Negative) Urine Glucose (UA) (Negative) Urine Ketones (Negative) Urine Blood (Negative) Urine Nitrite (Negative) Urine Bilirubin (Negative) Urine Urobilinogen (<2.0) mg/dL Ur Leukocyte Esterase (Negative) 04/06/19 Range/Units 16:20 WBC (3.8-10.6) k/uL RBC (3.80-5.40) m/uL Hgb (11.4-16.0) gm/dL Hct (34.0-46.0) % MCV (80.0-100.0) fL MCH (25.0-35.0) pg MCHC (31.0-37.0) g/dL RDW (11.5-15.5) % Plt Count (150-450) k/uL Neutrophils % % Lymphocytes % % Monocytes % % Eosinophils % % Basophils % % Neutrophils # (1.3-7.7) k/uL Lymphocytes # (1.0-4.8) k/uL Monocytes # (0-1.0) k/uL Eosinophils # (0-0.7) k/uL Basophils # (0-0.2) k/uL PT (9.0-12.0) sec INR (<1.2) APTT (22.0-30.0) sec Sodium (137-145) mmol/L Potassium (3.5-5.1) mmol/L Chloride (98-107) mmol/L Carbon Dioxide (22-30) mmol/L Anion Gap mmol/L BUN (7-17) mg/dL Creatinine (0.52-1.04) mg/dL Est GFR (CKD-EPI)AfAm (>60 ml/min/1.73 sqM) Est GFR (CKD-EPI)NonAf (>60 ml/min/1.73 sqM) Glucose (74-99) mg/dL Plasma Lactic Acid Cal (0.7-2.0) mmol/L Calcium (8.4-10.2) mg/dL Phosphorus (2.5-4.5) mg/dL Magnesium (1.6-2.3) mg/dL Total Bilirubin (0.2-1.3) mg/dL AST (14-36) U/L ALT (9-52) U/L Alkaline Phosphatase (38-126) U/L Creatine Kinase (30-135) U/L CK-MB (CK-2) (0.0-2.4) ng/mL Troponin I (0.000-0.034) ng/mL NT-Pro-B Natriuret Pep pg/mL Total Protein (6.3-8.2) g/dL Albumin (3.5-5.0) g/dL TSH (0.465-4.680) mIU/L Urine Color Light Yellow Urine Appearance Clear (Clear) Urine pH 6.5 (5.0-8.0) Ur Specific [place] 1.008 (1.001-1.035) Urine Protein Negative (Negative) Urine Glucose (UA) Negative (Negative) Urine Ketones Negative (Negative) Urine Blood Negative (Negative) Urine Nitrite Negative (Negative) Urine Bilirubin Negative (Negative) Urine Urobilinogen <2.0 (<2.0) mg/dL Ur Leukocyte Esterase Negative (Negative) Disposition Clinical Impression: Weakness, Fatigue Disposition: HOME SELF-CARE Condition: Good Instructions (If sedation given, give patient instructions): Weakness (ED), Fatigue (ED) Is patient prescribed a controlled substance at d/c from ED?: No Referrals: Marina De Jesus MD [Primary Care Provider] - 1-2 days
[2019-04-06 16:31] LABS: Appearance,Urine Clear (Clear); Bilirubin,Urine Negative (Negative); Blood,Urine Negative (Negative); Color,Urine Light Yellow; Glucose,Urine (UA) Negative (Negative); Ketones,Urine Negative (Negative); Leukocyte Esterase,Urine Negative (Negative); Nitrite,Urine Negative (Negative); PH, Urine 6.5 (5.0-8.0); Protein,Urine Negative (Negative); Specific Gravity,Urine 1.008 (1.001-1.035); Urobilinogen,Urine <2.0 mg/dL (<2.0)
[2019-04-06 16:34] LABS: Basophils % (A) 1 %; Eosinophils # (A) 0.1 k/uL (0-0.7); Eosinophils % (A) 2 %; HCT 41.3 % (34.0-46.0); HGB 13.8 gm/dL (11.4-16.0); Lymphocytes # (A) 2.1 k/uL (1.0-4.8); Lymphocytes % (A) 30 %; MCH 30.5 pg (25.0-35.0); MCHC 33.4 g/dL (31.0-37.0); MCV 91.3 fL (80.0-100.0); Mean Platelet Volume 6.7; Monocytes # (A) 0.3 k/uL (0-1.0); Monocytes % (A) 4 %; Neutrophils # (A) 4.4 k/uL (1.3-7.7); Neutrophils % (A) 62 %; Platelet Count 240 k/uL (150-450); RBC 4.52 m/uL (3.80-5.40); RDW 13.1 % (11.5-15.5); WBC 7.1 k/uL (3.8-10.6)
[2019-04-06 16:39] LABS: INR 0.9 (<1.2); Partial Thromboplastin Time 23.1 sec (22.0-30.0); Prothrombin Time 9.9 sec (9.0-12.0)
[2019-04-06 16:45] LABS: ALT 16 U/L (9-52); AST 16 U/L (14-36); African American GFR (CKD) >90 (>60 ml/min/1.73 sqM); Albumin 3.8 g/dL (3.5-5.0); Alkaline Phosphatase 42 U/L (38-126); Anion Gap 7 mmol/L; Blood Urea Nitrogen 7 mg/dL (7-17); Carbon Dioxide 25 mmol/L (22-30); Chloride 107 mmol/L (98-107); Creatine Kinase 43 U/L (30-135); Glucose 82 mg/dL (74-99); Magnesium 1.8 mg/dL (1.6-2.3); Phosphorus 3.4 mg/dL (2.5-4.5); Potassium 3.7 mmol/L (3.5-5.1); Sodium 139 mmol/L (137-145); Total Bilirubin 0.6 mg/dL (0.2-1.3); Total Protein 6.5 g/dL (6.3-8.2)
[2019-04-06 17:05] LABS: Creatine Kinase MB 0.3 ng/mL (0.0-2.4); Troponin I <0.012 ng/mL (0.000-0.034)
[2019-04-06 20:37] VITALS: BP 128/58; PULSE 66; TEMP 97.8
== END 2019-04-06 20:37 | disposition home or self-care (01) ==
LOC: EC 15:46
DX: R53.1 Weakness (principal); R53.83 Other fatigue; R63.0 Anorexia; R42 Dizziness and giddiness; R63.4 Abnormal weight loss; J44.9 Chronic obstructive pulmonary disease, unspecified; M79.7 Fibromyalgia; F32.9 Major depressive disorder, single episode, unspecified; F41.9 Anxiety disorder, unspecified; F17.200 Nicotine dependence, unspecified, uncomplicated; Z88.1 Allergy status to other antibiotic agents; Z88.8 Allergy status to other drugs, medicaments and biological substances; Z91.013 Allergy to seafood; Z91.018 Allergy to other foods; Z91.041 Radiographic dye allergy status; Z91.048 Other nonmedicinal substance allergy status; Z79.1 Long term (current) use of non-steroidal anti-inflammatories (NSAID); Z79.891 Long term (current) use of opiate analgesic; Z79.899 Other long term (current) drug therapy; Z87.39 Personal history of other diseases of the musculoskeletal system and connective tissue; Z68.27 Body mass index [BMI] 27.0-27.9, adult
CPT/HCPCS: 36415; 80053; 81003; 82075; 82550; 82553; 83605; 83735; 83880; 84100; 84443; 84484; 85025; 85610; 85730; 93005; 96360; 96361; 99285

== ENCOUNTER 2019-04-30 12:49 | Emergency (ER) | payer MEDICARE, OTHER ==
[2019-04-30 12:54] VITALS: BP 145/88; PULSE 96; RESP 20; TEMP 98.2
--- NOTE | 2019-04-30 13:13 | ED ---
General Adult HPI - General Chief complaint: Back Pain/Injury Stated complaint: Side & back pain Time Seen by Provider: 04/30/19 12:59 Source: patient, RN notes reviewed Mode of arrival: ambulatory Limitations: no limitations - History of Present Illness Initial comments: 3-year-old female with a past medical history of degenerative disc disease, fibromyalgia presents for back pain. States his pain is chronic in nature. States that this is consistent with previous exacerbations of back pain. States that she saw her primary care provider yesterday and had an IM injection of Toradol but that did not help. States that when she gets like this she generally needs a shot of pain medication and she usually has significant relief. Patient states that she is seeing pain management and has an appointment to have spinal injections as well as see a neurosurgeon for her back pain. Patient has not had any injections as of yet. Today patient denies any saddle anesthesia, bladder or bowel changes, fever, weakness of the lower extremities.Patient has no other complaints at this time including shortness of breath, chest pain, abdominal pain, nausea or vomiting, headache, or visual changes. - Related Data Home Medications Medication Instructions Recorded Confirmed Albuterol Inhaler [Ventolin Hfa 2 puff INHALATION RT-Q4H PRN 12/16/16 04/06/19 Inhaler] Ibuprofen 800 mg PO TID 12/01/18 04/06/19 Cyclobenzaprine [Flexeril] 10 mg PO BID 01/21/19 04/06/19 HYDROcodone/APAP 10-325MG [[place] 1 tab PO TID 01/21/19 04/06/19 10-325] Pregabalin [Lyrica] 150 mg PO BID 01/21/19 04/06/19 Escitalopram Oxalate [Lexapro] 20 mg PO HS 04/06/19 04/06/19 Tiotropium [place] [Spiriva 2 puff INHALATION RT-DAILY 04/06/19 04/06/19 Respimat] Allergies Allergy/AdvReac Type Severity Reaction Status Date / Time cashew nut Allergy Unknown Verified 04/30/19 12:54 cat dander Allergy Unknown Verified 04/30/19 12:54 dog dander Allergy Unknown Verified 04/30/19 12:54 erythromycin base Allergy Unknown Verified 04/06/19 16:41 gabapentin Allergy Unknown Verified 04/30/19 12:54 mold Allergy Unknown Verified 04/30/19 12:54 shellfish derived [Shellfish] Allergy Anaphylaxis Verified 04/30/19 12:54 Iodinated Contrast Media AdvReac Unknown Verified 04/30/19 12:54 [Iodinated Contrast- Oral and IV Dye] steroids Allergy Unknown Uncoded 04/30/19 12:54 Review of Systems ROS Statement: Those systems with pertinent positive or pertinent negative responses have been documented in the HPI. ROS Other: All systems not noted in ROS Statement are negative. Past Medical History Past Medical History: COPD, Fibromyalgia Additional Past Medical History / Comment(s): intercostal neuritis, DDD, carpal tunnel, tennis elbow. History of Any Multi-Drug Resistant Organisms: None Reported Past Surgical History: No Surgical Hx Reported Additional Past Surgical History / Comment(s): VTP, cryotherapy of the cervix. endoscopy, Thoracic ablation Past Anesthesia/Blood Transfusion Reactions: No Reported Reaction Past Psychological History: Anxiety, Depression Smoking Status: Current every day smoker Past Alcohol Use History: None Reported Past Drug Use History: None Reported - Past Family History Father Family Medical History: No Reported History Mother Family Medical History: Asthma, COPD, Diabetes Mellitus General Exam Limitations: no limitations General appearance: alert, in no apparent distress Head exam: Present: atraumatic, normocephalic, normal inspection Eye exam: Present: normal appearance, PERRL, EOMI. Absent: scleral icterus, conjunctival injection, periorbital swelling ENT exam: Present: normal exam, mucous membranes moist Neck exam: Present: normal inspection, full ROM. Absent: tenderness, meningismus, lymphadenopathy Respiratory exam: Present: normal lung sounds bilaterally. Absent: respiratory distress, wheezes, rales, rhonchi, stridor Cardiovascular Exam: Present: regular rate, normal rhythm, normal heart sounds. Absent: systolic murmur, diastolic murmur, rubs, gallop, clicks GI/Abdominal exam: Present: soft, normal bowel sounds. Absent: distended, tenderness, guarding, rebound, rigid Extremities exam: Present: normal capillary refill (Cap refill less than 2 seconds, DP pulses 2+ and equal in lower extremities bilaterally.), other (Sensation intact throughout lower extremities.) Back exam: Absent: CVA tenderness (R), CVA tenderness (L) Neurological exam: Present: alert, normal gait Course Vital Signs 10/03/19 12:51 Temperature 98.2 F Pulse Rate 96 Respiratory 20 Rate Blood Pressure 145/88 O2 Sat by Pulse 99 Oximetry Medical Decision Making - Medical Decision Making 48-year-old female presents for chronic back pain. States it is at a point where she needs IM injection. Patient had Toradol yesterday at her primary care's office and it did not help. No neurologic deficit on exam. Neurovascular status intact in the lower extremities. No red flag symptoms. Pain is exactly consistent with previous exacerbations of back pain. Patient is following up with pain management and does have an appointment with a neurosurgeon. Patient was given pain medicine here in the emergency department. However discussed that she will need to follow-up with pain management for further management of this rather than through the emergency department. She does agree. Worsening symptoms were discussed with her to return and she will return if these occur. Disposition Clinical Impression: Chronic back pain Disposition: HOME SELF-CARE Condition: Good Instructions (If sedation given, give patient instructions): Acute Low Back Pain (ED) Additional Instructions: Please follow up with pain management. Return if you have any worsening symptoms including saddle anesthesia, bladder or bowel changes, or numbness or weakness of the lower extremities. Is patient prescribed a controlled substance at d/c from ED?: No Referrals: Marina De Jesus MD [Primary Care Provider] - 1-2 days Time of Disposition: 13:20
[2019-04-30] MEDS ORDERED: MORPHINE SULFATE 4 MG/ML SYRINGE IM STA (13:14)
== END 2019-04-30 13:50 | disposition home or self-care (01) ==
LOC: EC 12:49
DX: G89.29 Other chronic pain (principal); M54.9 Dorsalgia, unspecified; M79.7 Fibromyalgia; F41.9 Anxiety disorder, unspecified; F32.9 Major depressive disorder, single episode, unspecified; J44.9 Chronic obstructive pulmonary disease, unspecified; J30.81 Allergic rhinitis due to animal (cat) (dog) hair and dander; F17.200 Nicotine dependence, unspecified, uncomplicated; Z79.51 Long term (current) use of inhaled steroids; Z79.891 Long term (current) use of opiate analgesic; Z79.899 Other long term (current) drug therapy; Z88.1 Allergy status to other antibiotic agents; Z91.013 Allergy to seafood; Z91.018 Allergy to other foods; Z91.041 Radiographic dye allergy status; Z88.8 Allergy status to other drugs, medicaments and biological substances; Z91.048 Other nonmedicinal substance allergy status; Z87.39 Personal history of other diseases of the musculoskeletal system and connective tissue; Z98.890 Other specified postprocedural states
CPT/HCPCS: 99283; 96372; J2270

== ENCOUNTER → 2019-05-19 | Outpatient (CLI) | payer MEDICARE, OTHER ==
[2019-05-19 15:10] VITALS: BP 134/81; PULSE 91; RESP 18; TEMP 98.3; BMI 26.9
--- NOTE | 2019-05-19 16:18 | P.HPOB ---
History of Present Illness H&P Date: 05/19/19 Chief Complaint: The patient is here for her routine gynecologic exam. This is a 48-year-old with an LMP of 05/04/2019. The patient's was status post vasectomy, but he earlier this year. She is not seeing anybody at this time and has not been sexually active since becoming a . The patient states her menstrual periods were regular every month but during the last 6 months have been about every 1-2 months. She has occasional hot flashes during the day but also hasn't noticed night sweats occasionally. She is without gynecologic complaints. Review of Systems The patient has lost 7 pounds over the last year. She denies respiratory, cardiac, or G.I. problems. 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 History of Any Multi-Drug Resistant Organisms: None Reported Past Surgical History: No Surgical Hx Reported Additional Past Surgical History / Comment(s): VTP, cryotherapy of the cervix. endoscopy, Thoracic ablation. Right breast biopsy in June 2018 which was benign. Nerve ablation in her back. Colonoscopy 2018(next after 10yr). Past Anesthesia/Blood Transfusion Reactions: No Reported Reaction Past Psychological History: Anxiety, Depression Smoking Status: Current every day smoker (Less than one pack per day) Past Alcohol Use History: Rare (0-1 per month) Past Drug Use History: None Reported Additional Drug Use History / Comment(s): Used marijuana in her 20s only. - Past Family History Father Family Medical History: No Reported History Mother Family Medical History: Asthma, COPD, Diabetes Mellitus Medications and Allergies Home Medications Medication Instructions Recorded Confirmed Type Albuterol Inhaler [Ventolin Hfa 2 puff INHALATION RT-Q4H PRN 12/16/16 05/19/19 History Inhaler] Ibuprofen 800 mg PO TID 12/01/18 05/19/19 History Cyclobenzaprine [Flexeril] 10 mg PO BID 01/21/19 05/19/19 History HYDROcodone/APAP 10-325MG [[place] 1 tab PO TID 01/21/19 05/19/19 History 10-325] Pregabalin [Lyrica] 150 mg PO BID 01/21/19 05/19/19 History Escitalopram Oxalate [Lexapro] 20 mg PO HS 04/06/19 05/19/19 History Tiotropium [place] [Spiriva 2 puff INHALATION RT-DAILY 04/06/19 05/19/19 History Respimat] Allergies Allergy/AdvReac Type Severity Reaction Status Date / Time cashew nut Allergy Unknown Verified 05/19/19 15:10 cat dander Allergy Unknown Verified 05/19/19 15:10 dog dander Allergy Unknown Verified 05/19/19 15:10 erythromycin base Allergy Unknown Verified 05/19/19 15:10 gabapentin Allergy Unknown Verified 05/19/19 15:10 mold Allergy Unknown Verified 05/19/19 15:10 shellfish derived [Shellfish] Allergy Anaphylaxis Verified 05/19/19 15:10 Iodinated Contrast Media AdvReac Unknown Verified 05/19/19 15:10 [Iodinated Contrast- Oral and IV Dye] steroids Allergy Unknown Uncoded 05/19/19 15:10 Exam Vital Signs Temp Pulse Resp BP Pulse Ox 05/19/19 15:00 98.3 F 91 18 134/81 99 Intake and Output 05/19/19 05/19/19 05/19/19 06:59 14:59 22:59 Other: Weight 75.75 kg Height 5 feet 6 inches, weight 167 pounds, BMI 27. This is a well-developed well-nourished white female who is alert and oriented times 3 in no acute distress. HEENT: Within normal limits. NECK: Supple without mass or thyromegaly. CHEST AND LUNGS: Clear to auscultation. HEART: Regular rate and rhythm. BREASTS: Are without mass or discharge. AXILLARY EXAM: Negative for adenopathy. BACK: Negative for CVA tenderness. ABDOMEN: Soft, nontender, without palpable masses. PELVIC EXAM: Normal external genitalia. Cervix and vagina appear normal. There is no unusual discharge. There is no evidence of prolapse. The uterus is midposition, nongravid size and nontender. There are no palpable adnexal masses or tenderness. RECTAL EXAM: negative for mass or tenderness and is negative for occult blood. EXTREMITIES: Nontender. IMPRESSION: 1. 48-year-old perimenopausal female with normal gynecologic exam. 2. Status post right breast biopsy with marker placement in June 2018 according to the patient. PLAN: 1. Pap smear was performed. 2. Self breast awareness was discussed with the patient. 3. Bilateral diagnostic mammogram is due and the order slip was given to the patient for this. On the order slip a note was made that she had a right breast biopsy with marker placement in June 2018 in [place] according to the patient. 4. Osteoporosis prevention was discussed. I have stressed the importance of adequate calcium, vitamin D and regular exercise. Recommended amounts of calcium and vitamin D were also discussed. 5. She was advised to return in one year for her annual well woman exam.
== END | disposition home or self-care (01) ==
LOC: WWCWWP 14:57
PROVIDERS: ATTEND Obstetrics & Gynecology
DX: Z53.9 Procedure and treatment not carried out, unspecified reason (principal)

== ENCOUNTER → 2019-06-29 | Outpatient (CLI) | payer MEDICARE, OTHER ==
--- NOTE | 2019-06-30 08:01 | MM ---
Reason for exam: additional evaluation requested from prior study. Last mammogram was performed 1 year and 2 months ago. History: Benign core biopsy of the right breast, June 2018. Physical Findings: Nurse did not find any significant physical abnormalities on exam. MG 3D Diag Mammo W/Cad BRIAN Bilateral CC and MLO view(s) were taken. Prior study comparison: April 23, 2018, right breast MG 3d diag mammo w/cad RT. October 23, 2017, right breast MG 3d work up w/cad RT. The breast tissue is heterogeneously dense. This may lower the sensitivity of mammography. There are benign appearing round calcifications in the left breast. Previous mammotome biopsy in the right breast. There is no discrete abnormality. These results were verbally communicated with the patient and result sheet given to the patient on 06/29/19. ASSESSMENT: Benign, BI-RAD 2 RECOMMENDATION: Routine screening mammogram of both breasts in 1 year.
== END | disposition home or self-care (01) ==
LOC: RADMAMWWP 14:56
PROVIDERS: ATTEND Obstetrics & Gynecology
DX: R92.8 Other abnormal and inconclusive findings on diagnostic imaging of breast (principal)
CPT/HCPCS: 77066; G0279; 77062

== ENCOUNTER → 2020-03-02 | Outpatient (CLI) | payer MEDICARE, OTHER ==
[2020-03-02 11:40] VITALS: BP 121/79; PULSE 76; RESP 18; TEMP 98.3
--- NOTE | 2020-03-02 12:59 | P.HPOB ---
History of Present Illness H&P Date: 03/02/20 Chief Complaint: The patient is here for her routine gynecologic exam. This is a 49-year-old 0-2 with an LMP of 02/26/2020. The patient states her menstrual periods have gotten somewhat irregular during the past year and has had 2 occasions when she had 2 periods within 1 month. She states they previously were monthly starting on the same day each month. She states they no longer are predictable in that way. She has had occasional hot flashes but these are not very frequent and not very severe. She has noticed slight nipple discharge when she squeezes her nipples during the past few weeks. She denies any blood from the nipple discharge and states this only occurs when she squeezes the nipples. She has also been experiencing some urinary urgency and slight dysuria. She had a urinary tract infection about 4 months ago that was treated. She states it f eels like she may be having the start of another urinary tract infection. She states within the last few months she has become sexually involved with a neighbor friend, but she does not consider her boyfriend. She has been having unprotected intercourse. He does withdraw before ejaculation. Review of Systems She has gained about 6 pounds over the past year. General: She has been having difficulty losing weight. She also feels like she has very little energy and is very fatigued. She denies respiratory, cardiac, or GI problems. Also see the HPI. 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 She denies any other STDs. History of Any Multi-Drug Resistant Organisms: None Reported Additional Past Surgical History / Comment(s): VTP, cryotherapy of the cervix. endoscopy, Thoracic ablation. Right breast biopsy in June 2018 which was benign. Nerve ablation in her back. Colonoscopy 2018(next after 10yr). Past Anesthesia/Blood Transfusion Reactions: No Reported Reaction Past Psychological History: Anxiety, Depression Smoking Status: Current every day smoker (1 pack per day) Past Alcohol Use History: Occasional (0-2 per month) Past Drug Use History: Marijuana Additional Drug Use History / Comment(s): Occasional marijuana use. Additional History: She is a since 2018. She is in a sexual relationship in 2019, but does not consider her partner a boyfriend. - Past Family History Father Family Medical History: No Reported History Mother Family Medical History: Asthma, COPD, Diabetes Mellitus Medications and Allergies Home Medications Medication Instructions Recorded Confirmed Type Albuterol Inhaler (Mhu) [Ventolin 2 puff INHALATION RT-Q4H PRN 12/16/16 03/02/20 History Hfa Inhaler] Ibuprofen 800 mg PO TID 12/01/18 03/02/20 History Cyclobenzaprine [Flexeril] 10 mg PO BID 01/21/19 03/02/20 History HYDROcodone/APAP 10-325MG [[place] 1 tab PO TID 01/21/19 03/02/20 History 10-325] Pregabalin [Lyrica] 150 mg PO BID 01/21/19 03/02/20 History Escitalopram Oxalate [Lexapro] 20 mg PO HS 04/06/19 03/02/20 History Tiotropium [place] [Spiriva 2 puff INHALATION RT-DAILY 04/06/19 03/02/20 History Respimat] Allergies Allergy/AdvReac Type Severity Reaction Status Date / Time cashew nut Allergy Unknown Verified 03/02/20 11:26 cat dander Allergy Unknown Verified 03/02/20 11:26 dog dander Allergy Unknown Verified 03/02/20 11:26 erythromycin base Allergy Unknown Verified 03/02/20 11:26 gabapentin Allergy Unknown Verified 03/02/20 11:26 mold Allergy Unknown Verified 03/02/20 11:26 shellfish derived [Shellfish] Allergy Anaphylaxis Verified 03/02/20 11:26 Iodinated Contrast Media AdvReac Unknown Verified 03/02/20 11:26 [Iodinated Contrast- Oral and IV Dye] steroids Allergy Unknown Uncoded 03/02/20 11:26 Exam Vital Signs Temp Pulse Resp BP Pulse Ox 03/02/20 11:36 98.3 F 76 18 121/79 98 Intake and Output 03/01/20 03/02/20 03/02/20 22:59 06:59 14:59 Other: Weight 78.471 kg Height 5 feet 5 inches, weight 173 pounds, BMI 28.8. This is a well-developed well-nourished white female who is alert and oriented times 3 in no acute distress. HEENT: Within normal limits. NECK: Supple without mass or thyromegaly. CHEST AND LUNGS: Clear to auscultation. HEART: Regular rate and rhythm. BREASTS: Are without mass. No nipple discharge is noted with squeezing the nipples. AXILLARY EXAM: Negative for adenopathy. BACK: Negative for CVA tenderness. ABDOMEN: Soft, nontender, without palpable masses. PELVIC EXAM: Normal external genitalia. Cervix and vagina appear normal. There is a small amount of menstrual type blood in the back of the vagina. There is no unusual discharge. There is no evidence of prolapse. The uterus is midposition, nongravid size and nontender. There are no palpable adnexal masses or tenderness. RECTAL EXAM: negative for mass or tenderness and is negative for occult blood. EXTREMITIES: Nontender. IMPRESSION: 1. 49-year-old female with normal gynecologic exam. 2. Slight urinary urgency and dysuria, possible UTI. 3. Mild galactorrhea without any significant physical findings at this time. Nipple discharge is only noted with squeezing of the nipples. 4. Some menstrual irregularity with 2 episodes of polymenorrhea over the past year. Probable perimenopause. PLAN: 1. Pap smear was deferred since she had a normal one on 05/19/2019. 2. Self breast awareness was discussed with the patient. 3. Screening mammogram was done on 06/29/2019 and was benign. She is to repeat this again in June of this year and the order slip was given to the patient for this. 4. STD screening will include GC and chlamydia testing from the cervix. Affirm testing will be performed for Indu, Gardnerella and Trichomonas. She did have a shift in the vaginal arpit on her Pap smear last year suggestive of bacterial vaginosis. Blood tests will include HIV, RPR, hepatitis B surface antigen, hepatitis C antibody, prolactin, TSH with reflex, and FSH. 5. We had a long discussion regarding STD prevention and high risk sexual behaviors. I have expressed my concern with her sexual activity with some when she does not consider her boyfriend. If this is not a mutually exclusive relationship, he may not feel the need to limit sexual partners and this could increase her risk for getting a sexual transmitted infection. I have stressed the importance of limiting sexual partners and limiting sexual activity to long- term relationships and mutually exclusive relationships. I have recommended that she use condoms if she is sexually active. 6. Urine will be sent for urinalysis and culture with sensitivities. 7. She will continue to keep a menstrual calendar and return if she is having greater menstrual irregularities or problems. 8. She was advised to return in one year for her annual well woman exam and as needed.
[2020-03-02 14:16] LABS: Appearance,Urine Clear (Clear); Bilirubin,Urine Negative (Negative); Blood,Urine Negative (Negative); Color,Urine Light Yellow; Glucose,Urine (UA) Negative (Negative); Ketones,Urine Negative (Negative); Leukocyte Esterase,Urine Negative (Negative); Nitrite,Urine Negative (Negative); Protein,Urine Negative (Negative); Specific Gravity,Urine 1.004 (1.001-1.035); Urobilinogen,Urine <2.0 mg/dL (<2.0)
[2020-03-02 19:56] LABS: Hepatitis B Surface Antigen Non-Reactive (Non-Reactive); Hepatitis C IgG Antibody Non-Reactive (Non-Reactive)
[2020-03-02 20:25] LABS: Prolactin 7.5 ng/mL (2.8-29.2)
[2020-03-02 20:26] LABS: Follicle Stimulating Hormone 32.1 mIU/mL
[2020-03-02 20:37] LABS: HIV 2 AB Non-Reactive (Non-Reactive); HIV AB P24 Non-Reactive (Non-Reactive); HIV P24 AG Non-Reactive (Non-Reactive)
[2020-03-03 03:40] LABS: Gardnerella Negative (Negative); Source Cervix; Trichomonas Negative (Negative)
[2020-03-03 15:38] LABS: C. trachomatis,PCR Negative (Neg,Equiv); Chlamydia trachomatis Source Cervix; N. gonorrhoeae,PCR Negative (Neg,Equiv); Neisseria Source Cervix
== END | disposition home or self-care (01) ==
LOC: WWCWWP 11:04
PROVIDERS: ATTEND Obstetrics & Gynecology
DX: O92.6 Galactorrhea (principal); R39.15 Urgency of urination; R30.0 Dysuria; N92.1 Excessive and frequent menstruation with irregular cycle; Z72.51 High risk heterosexual behavior; Z11.3 Encounter for screening for infections with a predominantly sexual mode of transmission
CPT/HCPCS: 81003; 83001; 84146; 84443; 86780; 86803; 87086; 87340; 87390; 87480; 87491; 87510; 87591; 87660

== ENCOUNTER → 2020-07-04 | Outpatient (CLI) | payer MEDICARE, OTHER ==
--- NOTE | 2020-07-05 13:17 | MM ---
Reason for exam: screening (asymptomatic). Last mammogram was performed 1 year ago. History: Benign core biopsy of the right breast, June 2018. Physical Findings: A clinical breast exam by your physician is recommended on an annual basis and results should be correlated with mammographic findings. MG 3D Screening Mammo W/Cad Bilateral CC and MLO view(s) were taken. Prior study comparison: June 29, 2019, bilateral MG 3d diag mammo w/cad BRIAN. April 23, 2018, right breast MG 3d diag mammo w/cad RT. The breast tissue is heterogeneously dense. This may lower the sensitivity of mammography. Previous mammotome biopsy in the right breast. No significant changes when compared with prior studies. ASSESSMENT: Benign, BI-RAD 2 RECOMMENDATION: Routine screening mammogram of both breasts in 1 year.
== END | disposition home or self-care (01) ==
LOC: RADMAMWWP 14:56
PROVIDERS: ATTEND Obstetrics & Gynecology
DX: Z12.31 Encounter for screening mammogram for malignant neoplasm of breast (principal)
CPT/HCPCS: 77063; 77067

== ENCOUNTER → 2021-07-12 | Outpatient (CLI) | payer MEDICARE, OTHER ==
[2021-07-12 08:29] VITALS: PULSE 67; RESP 18; TEMP 98.2
--- NOTE | 2021-07-12 09:25 | P.HPOB ---
History of Present Illness H&P Date: 07/12/21 Chief Complaint: The patient is here for her routine gynecologic exam and ma mmogram. This is a 50-year-old 022 with an LMP of 06/28/2021. The patient states she has noticed a thin whitish discharge for a few months. She also notices slight odor with no pruritus. She recently broke up with a boyfriend who she had been with for about 2 years. She states it lasts were sexually active about 1 month ago. She has reason to believe that he was unfaithful during their relationship. She is no longer seeing anybody at this time. Menstrual periods have been regular every month but can vary in length and flow. Review of Systems The patient has lost 16 pounds over the last year. She denies respiratory or cardiac problems. GI: She has had problems with constipation, nausea and indigestion. She is seeing Dr. De Jesus for the symptoms. Past Medical History Past Medical History: COPD, Fibromyalgia Additional Past Medical History / Comment(s): intercostal neuritis, DDD, carpal tunnel, tennis elbow. 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 She denies any other STDs. History of Any Multi-Drug Resistant Organisms: None Reported Past Surgical History: No Surgical Hx Reported Additional Past Surgical History / Comment(s): VTP, cryotherapy of the cervix. endoscopy, Thoracic ablation. Right breast biopsy in June 2018 which was benign. Nerve ablation in her back. Colonoscopy 2018(next after 10yr). Past Anesthesia/Blood Transfusion Reactions: No Reported Reaction Past Psychological History: Anxiety, Depression Smoking Status: Current every day smoker (1 pack per day) Past Alcohol Use History: None Reported Past Drug Use History: Marijuana Additional Drug Use History / Comment(s): Occasional marijuana use. Additional History: She is a since 2018. The she was in a relationship from 2019 to 2020 but is not seen anybody at this time. She does not with outside the home and is disabled. - Past Family History Father Family Medical History: No Reported History Mother Family Medical History: Asthma, COPD, Diabetes Mellitus Medications and Allergies Home Medications Medication Instructions Recorded Confirmed Type Albuterol Inhaler (Mhu) [Ventolin 2 puff INHALATION RT-Q4H PRN 12/16/16 07/12/21 History Hfa Inhaler] Ibuprofen 800 mg PO TID 12/01/18 07/12/21 History HYDROcodone/APAP 10-325MG [[place] 1 tab PO TID 01/21/19 07/12/21 History 10-325] Pregabalin [Lyrica] 150 mg PO BID 01/21/19 07/12/21 History Escitalopram Oxalate [Lexapro] 20 mg PO HS 04/06/19 07/12/21 History Tiotropium [place] [Spiriva 2 puff INHALATION RT-DAILY 04/06/19 07/12/21 History Respimat] Cephalexin [Keflex] 500 mg PO Q8HR 07/12/21 07/12/21 History Cetirizine HCl [Zyrtec] 10 mg PO HS 07/12/21 07/12/21 History Clindamycin Topical Soln 1 applic TOPICAL BID 07/12/21 07/12/21 History [Cleocin-T Topical Soln] Montelukast [Singulair] 10 mg PO DAILY 07/12/21 07/12/21 History Allergies Allergy/AdvReac Type Severity Reaction Status Date / Time cashew nut Allergy Unknown Verified 07/12/21 08:14 cat dander Allergy Unknown Verified 07/12/21 08:14 dog dander Allergy Unknown Verified 07/12/21 08:14 erythromycin base Allergy Unknown Verified 07/12/21 08:14 gabapentin Allergy Unknown Verified 07/12/21 08:14 mold Allergy Unknown Verified 07/12/21 08:14 shellfish derived [Shellfish] Allergy Anaphylaxis Verified 07/12/21 08:14 Iodinated Contrast Media AdvReac Unknown Verified 07/12/21 08:14 [Iodinated Contrast- Oral and IV Dye] steroids Allergy Unknown Uncoded 07/12/21 08:14 Exam Vital Signs Temp Pulse Resp Pulse Ox 07/12/21 08:21 98.2 F 67 18 99 Intake and Output 07/11/21 07/12/21 07/12/21 22:59 06:59 14:59 Other: Weight 71.214 kg Height 5 feet 4 inches, weight 157 pounds, BMI 26.9. This is a well-developed well-nourished white female who is alert and oriented times 3 in no acute distress. HEENT: Within normal limits. NECK: Supple without mass or thyromegaly. CHEST AND LUNGS: Clear to auscultation. HEART: Regular rate and rhythm. BREASTS: Are without mass or discharge. AXILLARY EXAM: Negative for adenopathy. BACK: Negative for CVA tenderness. ABDOMEN: Soft, with mild epigastric tenderness, without palpable masses. There is no lower abdomen tenderness. The abdomen is nondistended. PELVIC EXAM: Normal external genitalia. Cervix and vagina appear normal. There is a small amount of grayish thin discharge in the back of the vagina without odor. There is no cervical motion discharge. There is no evidence of prolapse. The uterus is midposition, nongravid size and nontender. There are no palpable adnexal masses or tenderness. RECTAL EXAM: Rectovaginal exam is negative for mass or tenderness and is negative for occult blood. EXTREMITIES: Nontender. IMPRESSION: 1. 50-year-old pre-menopausal female with small thin nunes discharge in the back of the vagina without odor. Differential diagnosis will include bacterial vaginosis, Indu vaginitis, Trichomonas, GC, chlamydia, or physiologic discharge. 2. Possible exposure to STDs from her ex-partner who may have been unfaithful. PLAN: 1. Pap smear cotest was performed. 2. Self breast awareness was discussed with the patient. We have also discussed symptoms associated with inflammatory breast cancer. 3. Screening mammogram will be done today. 4. GC and chlamydia testing were obtained from the cervix. 5. Affirm vaginitis panel was obtained from the vagina. 6. Other STD testing will include blood tests for HIV, RPR, hepatitis B surface antigen, and hepatitis C antibody. The order slip was given to the patient for these blood tests. STD prevention was discussed. I have stressed the importance of limiting sexual partners. I have also recommended that she use condoms if she is sexually active. 7. She has not received a Covid vaccination. I have stressed the importance of this and I have recommended that she look into getting this. She states she will consider that. 8. She will keep a menstrual calendar and call if menstrual problems. 9. She was advised to return in one year for her annual well woman exam.
--- NOTE | 2021-07-13 12:11 | MM ---
Reason for exam: screening (asymptomatic). Last mammogram was performed 1 year ago. History: Benign core biopsy of the right breast, June 2018. Physical Findings: A clinical breast exam by your physician is recommended on an annual basis and results should be correlated with mammographic findings. MG 3D Screening Mammo W/Cad Bilateral CC and MLO view(s) were taken. Prior study comparison: July 04, 2020, bilateral MG 3d screening mammo w/cad. June 29, 2019, bilateral MG 3d diag mammo w/cad BRIAN. The breast tissue is heterogeneously dense. This may lower the sensitivity of mammography. There are benign appearing round calcifications bilaterally. Previous mammotome biopsy in the right breast. There is no discrete abnormality. ASSESSMENT: Benign, BI-RAD 2 RECOMMENDATION: Routine screening mammogram of both breasts in 1 year.
[2021-07-13 13:13] LABS: Gardnerella Positive (Negative); Source Vagina; Trichomonas Negative (Negative)
[2021-07-13 17:07] LABS: C. trachomatis,PCR Negative (Neg,Equiv); Chlamydia trachomatis Source Cervix; N. gonorrhoeae,PCR Negative (Neg,Equiv); Neisseria Source Cervix
== END ==
LOC: WWCWWP 08:01
PROVIDERS: ATTEND Obstetrics & Gynecology
DX: Z12.31 Encounter for screening mammogram for malignant neoplasm of breast (principal); Z01.419 Encounter for gynecological examination (general) (routine) without abnormal findings; J44.9 Chronic obstructive pulmonary disease, unspecified; F32.A Depression, unspecified; F41.9 Anxiety disorder, unspecified; F17.210 Nicotine dependence, cigarettes, uncomplicated; Z79.51 Long term (current) use of inhaled steroids; N89.8 Other specified noninflammatory disorders of vagina; Z91.018 Allergy to other foods; Z88.1 Allergy status to other antibiotic agents; Z91.030 Bee allergy status; Z91.041 Radiographic dye allergy status; Z88.8 Allergy status to other drugs, medicaments and biological substances; Z91.09 Other allergy status, other than to drugs and biological substances
CPT/HCPCS: 77063; 77067; 87480; 87491; 87510; 87591; 87660

== ENCOUNTER → 2021-11-23 | Outpatient (CLI) | payer MEDICARE, OTHER ==
--- NOTE | 2021-11-23 09:42 | US ---
EXAMINATION TYPE: US abdomen complete DATE OF EXAM: 11/23/2021 COMPARISON: CT March 06, 2018 CLINICAL HISTORY: R10.9 Abdominal Pain. Epigastric and para umbilical pain; GERD per patient; fibromy algia; asthma, COPD, pelvic pain; smoker; liver cyst per CT EXAM MEASUREMENTS: Liver Length: 12.3 cm Gallbladder Wall: 0.2 cm CBD: 0.6 cm Spleen: 9.8 cm Right Kidney: 11.6 x 5.8 x 4.2 cm Left Kidney: 9.9 x 4.5 x 5.3 cm Pancreas: prominent pancreatic duct = 2.3mm; tail obscured by overlying bowel gas Liver: superior right lobe cystic cluster is seen = 0.6 x 0.9 x 0.8cm Gallbladder: wnl Evidence for sonographic Dietrich's sign: no CBD: wnl Spleen: wnl Right Kidney: No hydronephrosis or masses seen Left Kidney: No hydronephrosis or masses seen Upper IVC: wnl Abd Aorta: size is wnl; intimal wall thickening is noted inferiorly The visualized liver is heterogeneous in appearance without focal mass or ductal dilatation identifie d. Evaluation for focal masses suboptimal due to the heterogeneity. Technologist mariano subcentimeter round anechoic lesion favoring benign thin-walled cyst in the right hepatic dome likely corresponding to CT axial image 16. No aneurysm in the visualized abdominal aorta. IVC seen near hepatic dome. The re is no evidence of cholelithiasis. Common bile duct is unremarkable. The visualized portions of t he pancreas are homogenous. Pancreatic duct is visualized but not abnormally dilated. The spleen is unremarkable. Kidneys are symmetric and free of hydronephrosis. No renal lesions are seen. IMPRESSION: No acute findings are evident.
== END | disposition home or self-care (01) ==
LOC: RADUSWWP 08:32
PROVIDERS: ATTEND Internal Medicine
DX: K21.9 Gastro-esophageal reflux disease without esophagitis (principal); M79.7 Fibromyalgia; J44.9 Chronic obstructive pulmonary disease, unspecified; K76.89 Other specified diseases of liver
CPT/HCPCS: 76700